=== PATIENT | female | born 1980 | race Caucasian/White ===

== ENCOUNTER 2021-04-03 16:07 | Inpatient (IN) ==
[2021-04-03] MEDS ORDERED: MAGNESIUM SULFATE 40GM / WTR 1,000 ML BAG IV ONE (16:47)
[2021-04-03] MEDS ORDERED: NIFEdipine 10 MG CAP PO STA ×2 (16:59→17:34)
[2021-04-03] MEDS ORDERED: NIFEdipine 10 MG CAP ONE (17:02)
[2021-04-03 17:09] LABS: Basophils # (auto) 0.01 K/uL (0-0.2); Basophils % (auto) 0.1 %; Eosinophils # (auto) 0.03 K/uL (0-0.5); Eosinophils % (auto) 0.3 %; Hemoglobin 12.6 g/dL (12.0-16.0); Immature Granulocytes # (auto) 0.02 K/uL (0.00-0.02); Immature Granulocytes % (auto) 0.2 %; Lymphocytes # (auto) 2.34 K/uL (1.2-3.4); Lymphocytes % (auto) 26.3 %; Mean Corpuscular Hemoglobin 32.6 pg (25-34); Mean Corpuscular Hgb Conc 34.1 g/dL (32-36); Mean Corpuscular Volume 95.6 fL (80-100); Mean Platelet Volume 10.7 fL (7.4-10.4); Monocytes # (auto) 0.91 K/uL (0.11-0.59); Monocytes % (auto) 10.2 %; Neutrophils % (auto) 62.9 %; Platelet Count 238 K/uL (130-400); RDW Coefficient of Variation 13.6 % (11.5-14.5); RDW Standard Deviation 47.2 fL (36.4-46.3); Red Blood Count 3.87 M/uL (4.2-5.4); White Blood Count 8.91 K/uL (4.8-10.8)
[2021-04-03 17:31] LABS: Alanine Aminotransferase 22 U/L (12-78); Albumin Level 2.1 gm/dl (3.4-5.0); Aspartate Aminotransferase 27 U/L (15-37); BUN Creatinine Ratio 12.2 (10-20); Blood Urea Nitrogen 9 mg/dl (7-18); Carbon Dioxide 22 mmol/L (21-32); Chloride 105 mmol/L (98-107); Est GFR (African American) 113.7 ml/min; Est GFR (Non-African American) 98.1 ml/min; Glucose 72 mg/dl (70-99); Sodium 137 mmol/L (136-145)
[2021-04-03 17:33] LABS: Albumin Globulin Ratio 0.5 (0.9-2); Alkaline Phosphatase 97 U/L (45-117); Bilirubin,Total 0.3 mg/dl (0.2-1); Globulin 4.2 gm/dl (2.5-4.0); Total Protein 6.3 gm/dl (6.4-8.2)
[2021-04-03] MEDS: LACTATED RINGER'S 1,000 ML IV PRN ×2 (17:55→21:57)
[2021-04-03] MEDS ORDERED: LACTATED RINGER'S 1,000 ML IV PRN (18:07)
[2021-04-03] MEDS ORDERED: PENICILLIN G POTASSIUM 6 MU in DEXTROSE 5% 250 ML IV STA (18:07)
[2021-04-03] MEDS ORDERED: OXYTOCIN 30 UNITS/500 ML BAG IV PRN ×2 (18:07→18:09)
[2021-04-03] MEDS ORDERED: BETAMETH SOD PHOS/ACETATE IA 6 MG/ML IM STA (18:09)
[2021-04-03 18:14] LABS: Protein Creatinine Ratio Urine 2.3 (0-0.2); Total Protein Urine Random 667.1 mg/dl (0-11.9)
[2021-04-03] MEDS ORDERED: MAG SULFATE BOLUS FROM BAG 4 GM IV ONE (18:14)
[2021-04-03] MEDS ORDERED: BETAMETH SOD PHOS/ACETATE IA 6 MG/ML ONE (18:19)
--- NOTE | 2021-04-03 19:27 | History & Physical Report ---
Date of Service April 03, 2021 Assessment & Plan (1) Preeclampsia, severe: Plan: Admit to L&D. On arrival to L&D, patient continued to have multiple BPs 180s/110s. She received 10mg immediate-release PO nifedipine, this was not helpful, and then after 2nd dose of 10mg BP improved to 150s/90s. Preeclampsia bloodwork labs wnl, however protein/creatinine ratio is 2.3. Proteinuria + elevated BPs is diagnostic of preeclampsia, need for BP-lowering drugs because of persistent BP >160s/110 results in diagnosis of severe preeclampsia. I discussed the above with patient, recommended delivery. She is agreeable. We discussed attempt at vaginal delivery vs section, and she would prefer to proceed with induction of labor - since she is , she hopes the baby will not be too large for delivery. I think this is reasonable, given last week's US showing estimated weight of 3352g. For preeclampsia, will give magnesium 4g bolus and 2g/hr, with magnesium levels Q6h. Clear liquid diet, goodman catheter, seizure precautions. Will treat BPs > 160/110. For labor, I collected GBS swab today, will treat for current GBS unknown status with Pen G. Betamethasone given. I discussed case with on-call special events director Dr Laguna so he is aware of patient. For GDMA2, initial blood glucose was 72. Will check BS Q2h overnight, then Qhour while in active labor. To induce labor, I recommended goodman bulb with pitocin. Patient counseled, and agreeable. Goodman balloon placed, 35cc sterile water. Tolerated well. Continuous monitoring, blood type & screen ordered. EPC cuffs. Full COVID precaution protocols, patient is in negative-pressure room. OK for epidural when she desires. (2) COVID-19 affecting , antepartum: Admission and Anticipated Discharge Date Admission Date: April 03, 2021 History of Present Illness Chief Complaint: elevated BPs Primary Care Provider: Ricardo Santillan, DO 40yo @ 36 09/10, sent to L&D after routine office visit showed elevated BPs - 180s/100s. She is feeling unwell, reports nasal stuffiness and runny nose. Has not been able to taste/smell over the past few days. 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 She previously had COVID in May 2020. Not vaccinated. She denies COOMBS, vision changes, RUQ pain, N/V, fever/chills. Eating/drinking well. LE swelling has been present for weeks. + movement, no vaginal bleeding, no leaking of fluid, no reg ctx. also complicated by: Advanced Maternal Age IVF - no ICSI * echo- Normal GDM on insulin - current regimen is 8u Humalog with meals, 25u Novolin at night, but hasn't taken recently because she has been eating only soup because she cannot taste anything. 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 MFM recommended Lovenox PP if is needed. Placenta low lying - resolved at 32 weeks U/S Sleep apnea--had study at 3 months, was recommended to repeat study, patient declined because she cannot lie on her back. Allergies Allergy/AdvReac Type Severity Reaction Status Date / Time Sulfa (Sulfonamide Allergy hives Verified 04/03/21 18:33 Antibiotics) Home Medications Medication Instructions Recorded Confirmed Type prenat.vits,endy,jvy-rowa-vzyqb 1 tab PO DAILY 09/11/20 04/03/21 History aspirin [Adult Low Dose Aspirin] 81 mg PO DAILY 02/16/21 04/03/21 History insulin NPH isoph U-100 human 100 10 unit SUBCUT QPM #15 ml 03/09/21 04/03/21 Rx unit/mL (3 mL) subcutaneous pen (Novolin N Flexpen) pen needle, diabetic 32 gauge x #50 ea 03/09/21 03/28/21 Rx 5/32" (BD Ultra-Fine Hedy Pen Needle) insulin aspart U-100 100 unit/mL 8 unit SUBCUT .COMPLEX #15 ml 03/19/21 04/03/21 Rx (3 mL) subcutaneous pen (Novolog Flexpen U-100 Insulin aspart) Patient History Surgical History Hx of bariatric surgery gastric sleeve 2016 Family History (Updated 09/18/20 @ 15:20 by Nettie Ashley MD) Grandfather (Maternal) Factor V Leiden homozygous Deep vein thrombosis Sister Factor V Leiden heterozygous Social History (Updated 09/11/20 @ 15:19 by Sylwia Crisostomo) Smoking Status: Never smoker Hx Alcohol Use: No Hx Substance Use: No Preferred Language: Swedish Communication Ability: Effective Beliefs That Will Affect Care: None marital status: marital status details: Aayush (34) [phone] Current Living Situation: Spouse Current Living Situation Comment: lives with spouse, 4 cats, spouse to change litter current occupational status: employed 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 No s/s chorio or abruption. Skin: no rashes, warm and dry Psychiatric: A+Ox3, euthymic affect Results & Data ([facility]) Vital Signs (Past 12 Hours) Vital Signs Temp Pulse Resp BP 04/03/21 19:18 103 H 159/93 H 04/03/21 19:03 101 H 175/88 H 04/03/21 18:48 100 H 172/87 H 04/03/21 18:19 98 H 151/86 H 04/03/21 18:03 98 H 148/89 H 04/03/21 17:53 107 H 150/95 H 04/03/21 17:32 93 H 174/86 H 04/03/21 17:24 90 177/93 H 04/03/21 17:17 37.1 C 20 04/03/21 17:01 100 H 195/113 H 04/03/21 16:58 91 H 194/111 H 04/03/21 16:46 93 H 189/98 H 04/03/21 16:32 99 H 184/100 H 04/03/21 16:30 88 185/95 H Monitoring External Monitor FHT Cat 1 Garnet Q irreg SVE closed/thick/high Coding Level of Care Code None Diagnoses Preeclampsia, severe O14.10 COVID-19 affecting , antepartum O98.519; U07.1
[2021-04-03] MEDS: MAGNESIUM SULFATE / WTR 40 GM/1,000 ML BAG IV SCH (20:00)
[2021-04-03] MEDS ORDERED: BUPIVACAINE 0.25% 30 ML VIAL ONE (21:24)
[2021-04-03] MEDS ORDERED: SODIUM CHLORIDE 0.9% INJ 10 ML VIAL ONE (21:24)
[2021-04-03] MEDS ORDERED: ePHEDrine sulfate 50 MG/ML AMP ONE (21:24)
[2021-04-03] MEDS ORDERED: fentaNYL citrate 100 MCG/2 ML VIAL ONE (21:25)
[2021-04-03] MEDS ORDERED: fentaNYL 2MCG/ML ROPIVACAINE 1.25MG/ML 100 ML BAG EPI ONE (21:25)
--- NOTE | 2021-04-03 21:53 | Anesthesiology Consultation ---
Date of Service April 03, 2021 Assessment & Plan (1) Encounter for pre-operative examination: Chart Review Chart Review: Patient NOT seen in Pre Admission Testing and Acceptable Risk for Labor Epidural Consults Requested none ASA [id number] Proposed Anesthesia Anesthesia Type: Labor Epidural Risk / Benefits Reviewed With: PT / POA / Parent / Guardian, Accepts Plan and Informed Consent Obtained History Height/Weight Height: 5 ft 10 in Weight: 166.468 kg Allergies Allergy/AdvReac Type Severity Reaction Status Date / Time Sulfa (Sulfonamide Allergy hives Verified 04/03/21 18:33 Antibiotics) Medications Home Medications Medication Instructions Recorded Confirmed Last Taken prenat.vits,endy,xeu-zbpe-yvxti 1 tab PO DAILY 09/11/20 04/03/21 Unknown aspirin [Adult Low Dose Aspirin] 81 mg PO DAILY 02/16/21 04/03/21 Unknown insulin NPH isoph U-100 human 100 10 unit SUBCUT QPM #15 ml 03/09/21 04/03/21 Unknown unit/mL (3 mL) subcutaneous pen (Novolin N Flexpen) pen needle, diabetic 32 gauge x #50 ea 03/09/21 03/28/21 Unknown 5/32" (BD Ultra-Fine Hedy Pen Needle) insulin aspart U-100 100 unit/mL 8 unit SUBCUT .COMPLEX #15 ml 03/19/21 04/03/21 Unknown (3 mL) subcutaneous pen (Novolog Flexpen U-100 Insulin aspart) Active Medications Generic Name Dose Route Start Last Admin Trade Name Freq PRN Reason Stop Dose Admin Lactated Ringer's 1,000 mls @ 125 mls/hr 04/03/21 17:47 04/03/21 21:57 Lr IV 04/05/21 17:46 75 mls/hr .Q8H PRN Administration L&D Protocol Protocol Oxytocin 30 units in 500 mls @ 3 mls/hr 04/03/21 18:09 04/03/21 19:56 Pitocin IV 04/05/21 18:08 0.18 units/hr .Q24H PRN 3 mls/hr Labor Induction/Augmentation Titration Protocol 0.18 UNITS/HR Magnesium Sulfate 40 gm in 1,000 mls @ 50 mls/hr 04/03/21 18:15 04/03/21 20:00 Magnesium Sulfate / Wtr IV 05/03/21 18:14 50 mls/hr .Q20H [place] Administration NPO Date Last Intake of Fluids: 04/03/21 Time Last Intake of Fluids: 21:50 Date Last Intake of Solids: 04/03/21 Time Last Intake of Solids: 16:00 Past Medical History obesity, GDM, AMA,, COVID positive with sx Exercise / Class Metabolic Activity III < 4 Walking/Shop/Light housework Past Family History Family History Grandfather (Maternal) Factor V Leiden homozygous Deep vein thrombosis Sister Factor V Leiden heterozygous Past Surgical History Surgical History Hx of bariatric surgery gastric sleeve 2015 Past Anesthesia History No Hx of Anesthesia Complications History of PONV No Hx of PONV Social History Smoking Status: Never smoker Hx Alcohol Use: No Hx Substance Use: No substance use type: does not use Review of Systems Negative for chest pain or shortness of breath. Patient denies active symptoms of GERD. Patient denies history of abnormal bleeding or bleeding disorder. Patient denies active use of anticoagulants other than low dose aspirin. Patient denies numbness, tingling or weakness in lower extremities. Physical Exam Vital Signs Last Vital Signs Temp 36.6 C 04/03/21 19:34 Pulse 98 H 04/03/21 21:44 Resp 20 04/03/21 21:25 BP 139/92 04/03/21 21:02 Pulse Ox 99 04/03/21 21:44 Constitutional + obese ENMT Mouth: no TMJ abnormality and oral opening not small Thyromental Distance: > or= 3.5 Finger Breadths Mallampati Class: II Neck normal visual inspection; neck extension not limited Respiratory normal respiratory effort Auscultation: lungs clear to auscultation bilaterally Cardiovascular Rate/Rhythm: regular rate and regular rhythm Heart Sounds: no murmur Neurologic moves all extremities Psychiatric Orientation: alert and oriented x 3 Testing Laboratory Results 04/03/21 16:53 04/03/21 16:53 Blood Type A Positive 04/03/21 16:53 Antibody Screen NEGATIVE 04/03/21 16:53 04/03/21 21:19 POC Glucose 94
[2021-04-03] MEDS ORDERED: ePHEDrine sulfate 50 MG/ML AMP IV PRN (22:33)
[2021-04-03] MEDS ORDERED: NALBUPHINE HCL INJ 10 MG/ML AMP IV PRN (22:33)
[2021-04-03] MEDS ORDERED: ONDANSETRON INJ 2 MG/ML 2 ML VIAL IV PRN (22:33)
[2021-04-03] MEDS ORDERED: diphenhydrAMINE 50 MG/ML VIAL IV PRN (22:33)
[2021-04-03] MEDS ORDERED: NALOXONE HCL 0.4 MG/1 ML VIAL/CARP IV PRN (22:33)
[2021-04-03] MEDS ORDERED: NALOXONE HCL 1 MG in SODIUM CHLORIDE 0.9% 1000ML 1,000 ML IV PRN (22:33)
[2021-04-03] MEDS: PENICILLIN G POTASSIUM 3 MU in DEXTROSE 5% 100 ML IV PRN (23:55)
[2021-04-04] MEDS ORDERED: NIFEdipine 10 MG CAP PO STA (02:33)
[2021-04-04] MEDS ORDERED: NIFEdipine 10 MG CAP PO PRN (02:34)
[2021-04-04] MEDS: PENICILLIN G POTASSIUM 3 MU in DEXTROSE 5% 100 ML IV PRN ×4 (03:48→16:27)
[2021-04-04] MEDS: LACTATED RINGER'S 1,000 ML IV PRN (05:24)
[2021-04-04] MEDS: fentaNYL 2MCG/ML ROPIVACAINE 1.25MG/ML 100 ML BAG EPI PRN ×2 (06:19→14:03)
[2021-04-04] MEDS ORDERED: DEXTROSE 5% 1,000 ML IV PRN (07:08)
[2021-04-04] MEDS ORDERED: INSULIN REGULAR 250 UNITS in SODIUM CHLORIDE 0.9% 247.5 ML IV PRN (07:08)
[2021-04-04] MEDS ORDERED: SODIUM CHLORIDE 0.9% 1000ML 1,000 ML IV PRN (07:08)
[2021-04-04] MEDS ORDERED: DEXTROSE 50% 50 ML SYRINGE IV PRN (07:08)
[2021-04-04 07:24] LABS: Hematocrit (blood only) 37.9 % (37-47); Hemoglobin 12.7 g/dL (12.0-16.0); Mean Corpuscular Hemoglobin 32.2 pg (25-34); Mean Corpuscular Hgb Conc 33.5 g/dL (32-36); Mean Corpuscular Volume 95.9 fL (80-100); Mean Platelet Volume 10.9 fL (7.4-10.4); Platelet Count 256 K/uL (130-400); RDW Coefficient of Variation 13.7 % (11.5-14.5); RDW Standard Deviation 47.8 fL (36.4-46.3); Red Blood Count 3.95 M/uL (4.2-5.4); White Blood Count 11.42 K/uL (4.8-10.8)
--- NOTE | 2021-04-04 08:09 | Labor Progress Brief Note ---
Date of Service April 04, 2021 Subjective Received epidural overnight, now comfortable. FHT Cat 1 [place] Q 2 SVE: goodman bulb in the vagina, cervix 3/50/-3, anterior. Small amount of bloody show. BPs - required one dose of procardia 10mg overnight. Labs - CBC wnl, remainder of preeclampsia labs still pending. Glucose - elevated glucose, will initiate labor glucose management protocol. Continue labor. Assessment & Plan Admission and Anticipated Discharge Date Admission Date: April 03, 2021 Results & Data ([facility]) Vital Signs (Past 12 Hours) Vital Signs Pulse Resp BP Pulse Ox 04/04/21 08:04 109 H 98 04/04/21 07:59 108 H 98 04/04/21 07:54 108 H 98 04/04/21 07:49 114 H 98 04/04/21 07:44 110 H 99 04/04/21 07:39 110 H 98 04/04/21 07:38 106 H 137/76 04/04/21 07:36 112 H 211/89 H 04/04/21 07:34 117 H 99 04/04/21 07:29 112 H 98 04/04/21 07:24 110 H 99 04/04/21 07:20 112 H 159/96 H 04/04/21 07:19 113 H 98 04/04/21 07:14 123 H 98 04/04/21 07:09 117 H 98 04/04/21 07:05 111 H 149/93 H 04/04/21 07:04 117 H 98 04/04/21 06:59 115 H 98 04/04/21 06:54 112 H 97 04/04/21 06:50 113 H 160/98 H 04/04/21 06:49 117 H 97 04/04/21 06:44 107 H 99 04/04/21 06:39 115 H 98 04/04/21 06:35 107 H 151/93 H 04/04/21 06:34 110 H 98 04/04/21 06:30 20 04/04/21 06:29 113 H 98 04/04/21 06:24 113 H 99 04/04/21 06:20 104 H 141/83 H 04/04/21 06:19 104 H 99 04/04/21 06:14 104 H 99 04/04/21 06:09 110 H 160/71 H 100 04/04/21 06:06 120 H 171/100 H 04/04/21 06:04 110 H 98 04/04/21 06:00 20 04/04/21 05:59 104 H 98 04/04/21 05:54 109 H 97 04/04/21 05:50 104 H 134/81 04/04/21 05:49 108 H 98 04/04/21 05:44 112 H 97 04/04/21 05:39 115 H 98 04/04/21 05:35 112 H 129/82 04/04/21 05:34 115 H 97 04/04/21 05:30 16 04/04/21 05:29 114 H 99 04/04/21 05:24 120 H 99 04/04/21 05:20 120 H 134/83 04/04/21 05:19 120 H 99 04/04/21 05:14 120 H 99 04/04/21 05:09 112 H 98 04/04/21 05:04 104 H 98 04/04/21 05:00 20 04/04/21 04:59 106 H 96 04/04/21 04:54 105 H 97 04/04/21 04:49 105 H 98 04/04/21 04:46 105 H 154/82 H 04/04/21 04:44 107 H 99 04/04/21 04:39 107 H 97 04/04/21 04:34 111 H 16 97 04/04/21 04:30 16 04/04/21 04:29 106 H 97 04/04/21 04:26 112 H 150/103 H 04/04/21 04:24 111 H 97 04/04/21 04:19 108 H 98 04/04/21 04:14 107 H 98 04/04/21 04:09 109 H 98 04/04/21 04:06 106 H 145/85 H 04/04/21 04:04 112 H 98 04/04/21 04:00 18 04/04/21 03:59 108 H 98 04/04/21 03:54 107 H 98 04/04/21 03:49 108 H 98 04/04/21 03:47 114 H 147/82 H 04/04/21 03:44 109 H 98 04/04/21 03:39 110 H 97 04/04/21 03:34 112 H 98 04/04/21 03:30 16 04/04/21 03:29 114 H 97 04/04/21 03:26 115 H 139/78 04/04/21 03:24 115 H 95 04/04/21 03:21 119 H 94 04/04/21 03:19 116 H 96 04/04/21 03:14 120 H 96 04/04/21 03:09 115 H 97 04/04/21 03:06 111 H 148/80 H 04/04/21 03:04 110 H 96 04/04/21 03:00 20 04/04/21 02:59 104 H 97 04/04/21 02:54 103 H 97 04/04/21 02:49 98 H 16 97 04/04/21 02:44 106 H 98 04/04/21 02:39 104 H 173/91 H 98 04/04/21 02:34 102 H 98 04/04/21 02:29 102 H 97 04/04/21 02:28 102 H 169/97 H 04/04/21 02:25 101 H 173/106 H 04/04/21 02:24 102 H 97 04/04/21 02:19 102 H 98 04/04/21 02:17 97 H 152/84 H 04/04/21 02:14 97 H 150/70 H 98 04/04/21 02:09 100 H 183/79 H 97 04/04/21 02:05 16 04/04/21 02:04 103 H 98 04/04/21 02:00 20 04/04/21 01:59 100 H 98 04/04/21 01:54 103 H 98 04/04/21 01:53 101 H 137/65 04/04/21 01:49 103 H 98 04/04/21 01:44 102 H 97 04/04/21 01:39 104 H 98 04/04/21 01:38 102 H 134/63 04/04/21 01:34 103 H 97 04/04/21 01:30 18 04/04/21 01:29 100 H 98 04/04/21 01:24 104 H 98 04/04/21 01:23 99 H 137/81 04/04/21 01:19 106 H 99 04/04/21 01:16 96 H 135/73 04/04/21 01:14 108 H 99 04/04/21 01:12 104 H 138/74 04/04/21 01:09 104 H 184/107 H 98 04/04/21 01:05 109 H 167/110 H 90 04/04/21 01:04 103 H 97 04/04/21 01:00 20 04/04/21 00:59 102 H 96 04/04/21 00:54 98 H 175/95 H 97 04/04/21 00:49 101 H 96 04/04/21 00:44 99 H 97 04/04/21 00:40 100 H 164/85 H 04/04/21 00:39 111 H 98 04/04/21 00:34 98 H 97 04/04/21 00:30 16 04/04/21 00:29 101 H 97 04/04/21 00:24 98 H 97 04/04/21 00:23 100 H 148/88 H 04/04/21 00:19 98 H 96 04/04/21 00:14 98 H 97 04/04/21 00:09 96 H 96 04/04/21 00:08 98 H 149/86 H 04/04/21 00:04 97 H 98 04/04/21 00:00 04/03/21 23:59 97 H 99 04/03/21 23:54 102 H 99 04/03/21 23:53 96 H 146/83 H 04/03/21 23:49 102 H 98 04/03/21 23:46 102 H 88 L 04/03/21 23:44 95 H 96 04/03/21 23:39 101 H 138/86 97 04/03/21 23:34 102 H 98 04/03/21 23:30 16 04/03/21 23:29 103 H 98 04/03/21 23:24 102 H 97 04/03/21 23:23 100 H 148/79 H 04/03/21 23:19 102 H 97 04/03/21 23:14 105 H 98 04/03/21 23:09 118 H 107/52 L 98 04/03/21 23:05 102 H 104/51 L 04/03/21 23:04 102 H 98 04/03/21 23:02 105 H 101/51 L 04/03/21 23:00 109 H 20 107/55 L 04/03/21 22:59 106 H 99 04/03/21 22:58 101 H 107/52 L 04/03/21 22:56 100 H 101/52 L 04/03/21 22:54 98 H 99/58 L 98 04/03/21 22:52 105 H 97/55 L 04/03/21 22:50 103 H 89/50 L 04/03/21 22:49 106 H 99 04/03/21 22:48 96 H 96/50 L 04/03/21 22:46 99 H 91/52 L 04/03/21 22:44 91 H 82/44 L 98 04/03/21 22:42 94 H 77/40 L 04/03/21 22:40 85 76/40 L 04/03/21 22:39 90 82/46 L 99 04/03/21 22:37 94 H 81/41 L 04/03/21 22:34 110 H 95 04/03/21 22:33 100 H 170/102 H 04/03/21 22:29 109 H 105/62 98 04/03/21 22:26 108 H 115/53 L 04/03/21 22:24 119 H 98 04/03/21 22:23 126 H 134/90 04/03/21 22:21 110 H 136/90 04/03/21 22:19 106 H 100 04/03/21 22:14 103 H 98 04/03/21 22:09 107 H 99 04/03/21 22:04 116 H 174/108 H 99 04/03/21 22:00 16 04/03/21 21:59 103 H 99 04/03/21 21:54 101 H 98 04/03/21 21:49 105 H 98 04/03/21 21:44 98 H 99 04/03/21 21:39 108 H 97 04/03/21 21:34 104 H 98 04/03/21 21:29 103 H 98 04/03/21 21:25 20 04/03/21 21:24 103 H 99 04/03/21 21:19 98 H 98 04/03/21 21:14 104 H 98 04/03/21 21:09 100 H 98 04/03/21 21:02 100 H 139/92 04/03/21 20:48 102 H 147/87 H 04/03/21 20:32 95 H 145/79 H 09/28/21 20:25 16 04/03/21 20:17 92 H 143/83 H 04/03/21 20:10 18 Coding Level of Care Code None
[2021-04-04 08:20] LABS: Albumin Globulin Ratio 0.5 (0.9-2); Albumin Level 2.1 gm/dl (3.4-5.0); BUN Creatinine Ratio 13.3 (10-20); Bilirubin,Total 0.4 mg/dl (0.2-1); Calcium 8.6 mg/dl (8.5-10.1); Est GFR (African American) 110.2 ml/min; Est GFR (Non-African American) 95.1 ml/min; Globulin 4.4 gm/dl (2.5-4.0); Potassium 4.5 mmol/L (3.5-5.1); Total Protein 6.5 gm/dl (6.4-8.2)
--- NOTE | 2021-04-04 11:35 | Labor Progress Brief Note ---
Date of Service April 04, 2021 Subjective Reason For Note: Routine Evaluation Assessment & Plan (1) Insulin controlled gestational diabetes mellitus (GDM) during : Plan: 1. Fetus: Cat 1 2. Labor: Unchanged. Pitocin at 9. station to high for safe rupture. 3. PIH: Labs normal. BPs are mild range. Denies PIH symptoms. 4. gDM - Normal range. (2) Preeclampsia, severe: (3) Elderly primigravida, antepartum: (4) resulting from in vitro fertilization, antepartum: Admission and Anticipated Discharge Date Admission Date: April 03, 2021 Physical Exam Genitourinary: Manual OB Exam: + cervical dilation 3 cm, + cervical effacement 50% and + station high OB Exam Monitor Tracing: + external FHT monitor used, + external uterine monitor used, + category I and + normal FHT variability Results & Data ([facility]) Vital Signs (Past 12 Hours) Vital Signs Pulse Resp BP Pulse Ox 04/04/21 11:29 114 H 99 04/04/21 11:24 115 H 98 04/04/21 11:19 111 H 98 04/04/21 11:14 110 H 98 04/04/21 11:09 109 H 149/83 H 98 04/04/21 11:04 109 H 97 04/04/21 10:59 110 H 99 04/04/21 10:54 109 H 99 04/04/21 10:49 112 H 96 04/04/21 10:44 108 H 97 04/04/21 10:40 110 H 134/67 04/04/21 10:39 107 H 98 04/04/21 10:34 108 H 99 04/04/21 10:29 110 H 99 04/04/21 10:24 110 H 99 04/04/21 10:19 106 H 98 04/04/21 10:14 110 H 99 04/04/21 10:10 108 H 142/84 H 04/04/21 10:09 106 H 98 04/04/21 10:04 107 H 98 04/04/21 10:00 20 04/04/21 09:59 111 H 98 04/04/21 09:54 109 H 98 04/04/21 09:49 105 H 97 04/04/21 09:44 106 H 99 04/04/21 09:39 106 H 140/85 97 04/04/21 09:34 104 H 97 04/04/21 09:29 111 H 98 04/04/21 09:24 103 H 98 04/04/21 09:19 104 H 98 04/04/21 09:14 106 H 98 04/04/21 09:09 107 H 131/77 98 04/04/21 09:04 108 H 99 04/04/21 09:00 20 04/04/21 08:59 107 H 99 04/04/21 08:54 108 H 99 04/04/21 08:49 108 H 98 04/04/21 08:44 120 H 98 04/04/21 08:39 104 H 135/82 98 04/04/21 08:36 105 H 140/81 04/04/21 08:34 109 H 99 04/04/21 08:29 107 H 98 04/04/21 08:24 110 H 99 04/04/21 08:19 108 H 99 04/04/21 08:14 110 H 99 04/04/21 08:09 109 H 98 04/04/21 08:04 109 H 98 04/04/21 08:00 20 04/04/21 07:59 108 H 98 04/04/21 07:54 108 H 98 04/04/21 07:49 114 H 98 04/04/21 07:44 110 H 99 04/04/21 07:39 110 H 98 04/04/21 07:38 106 H 137/76 04/04/21 07:36 112 H 211/89 H 04/04/21 07:34 117 H 99 04/04/21 07:29 112 H 98 04/04/21 07:24 110 H 99 04/04/21 07:20 112 H 159/96 H 04/04/21 07:19 113 H 98 04/04/21 07:14 123 H 98 04/04/21 07:09 117 H 98 04/04/21 07:05 111 H 149/93 H 04/04/21 07:04 117 H 98 04/04/21 06:59 115 H 98 04/04/21 06:54 112 H 97 04/04/21 06:50 113 H 160/98 H 04/04/21 06:49 117 H 97 04/04/21 06:44 107 H 99 04/04/21 06:39 115 H 98 04/04/21 06:35 107 H 151/93 H 04/04/21 06:34 110 H 98 04/04/21 06:30 20 04/04/21 06:29 113 H 98 04/04/21 06:24 113 H 99 04/04/21 06:20 104 H 141/83 H 04/04/21 06:19 104 H 99 04/04/21 06:14 104 H 99 04/04/21 06:09 110 H 160/71 H 100 04/04/21 06:06 120 H 171/100 H 04/04/21 06:04 110 H 98 04/04/21 06:00 20 04/04/21 05:59 104 H 98 04/04/21 05:54 109 H 97 04/04/21 05:50 104 H 134/81 04/04/21 05:49 108 H 98 04/04/21 05:44 112 H 97 04/04/21 05:39 115 H 98 04/04/21 05:35 112 H 129/82 04/04/21 05:34 115 H 97 04/04/21 05:30 16 04/04/21 05:29 114 H 99 04/04/21 05:24 120 H 99 04/04/21 05:20 120 H 134/83 04/04/21 05:19 120 H 99 04/04/21 05:14 120 H 99 04/04/21 05:09 112 H 98 04/04/21 05:04 104 H 98 04/04/21 05:00 20 04/04/21 04:59 106 H 96 04/04/21 04:54 105 H 97 04/04/21 04:49 105 H 98 04/04/21 04:46 105 H 154/82 H 04/04/21 04:44 107 H 99 04/04/21 04:39 107 H 97 04/04/21 04:34 111 H 16 97 04/04/21 04:30 16 04/04/21 04:29 106 H 97 04/04/21 04:26 112 H 150/103 H 04/04/21 04:24 111 H 97 04/04/21 04:19 108 H 98 04/04/21 04:14 107 H 98 04/04/21 04:09 109 H 98 04/04/21 04:06 106 H 145/85 H 04/04/21 04:04 112 H 98 04/04/21 04:00 18 04/04/21 03:59 108 H 98 04/04/21 03:54 107 H 98 04/04/21 03:49 108 H 98 04/04/21 03:47 114 H 147/82 H 04/04/21 03:44 109 H 98 04/04/21 03:39 110 H 97 04/04/21 03:34 112 H 98 04/04/21 03:30 16 04/04/21 03:29 114 H 97 04/04/21 03:26 115 H 139/78 04/04/21 03:24 115 H 95 04/04/21 03:21 119 H 94 04/04/21 03:19 116 H 96 04/04/21 03:14 120 H 96 04/04/21 03:09 115 H 97 04/04/21 03:06 111 H 148/80 H 04/04/21 03:04 110 H 96 04/04/21 03:00 20 04/04/21 02:59 104 H 97 04/04/21 02:54 103 H 97 04/04/21 02:49 98 H 16 97 04/04/21 02:44 106 H 98 04/04/21 02:39 104 H 173/91 H 98 04/04/21 02:34 102 H 98 04/04/21 02:29 102 H 97 04/04/21 02:28 102 H 169/97 H 04/04/21 02:25 101 H 173/106 H 04/04/21 02:24 102 H 97 04/04/21 02:19 102 H 98 04/04/21 02:17 97 H 152/84 H 04/04/21 02:14 97 H 150/70 H 98 04/04/21 02:09 100 H 183/79 H 97 04/04/21 02:05 16 04/04/21 02:04 103 H 98 04/04/21 02:00 20 04/04/21 01:59 100 H 98 04/04/21 01:54 103 H 98 04/04/21 01:53 101 H 137/65 04/04/21 01:49 103 H 98 04/04/21 01:44 102 H 97 04/04/21 01:39 104 H 98 04/04/21 01:38 102 H 134/63 04/04/21 01:34 103 H 97 04/04/21 01:30 18 04/04/21 01:29 100 H 98 04/04/21 01:24 104 H 98 04/04/21 01:23 99 H 137/81 04/04/21 01:19 106 H 99 04/04/21 01:16 96 H 135/73 04/04/21 01:14 108 H 99 04/04/21 01:12 104 H 138/74 04/04/21 01:09 104 H 184/107 H 98 04/04/21 01:05 109 H 167/110 H 90 04/04/21 01:04 103 H 97 04/04/21 01:00 20 04/04/21 00:59 102 H 96 04/04/21 00:54 98 H 175/95 H 97 04/04/21 00:49 101 H 96 04/04/21 00:44 99 H 97 04/04/21 00:40 100 H 164/85 H 04/04/21 00:39 111 H 98 04/04/21 00:34 98 H 97 04/04/21 00:30 16 04/04/21 00:29 101 H 97 04/04/21 00:24 98 H 97 04/04/21 00:23 100 H 148/88 H 04/04/21 00:19 98 H 96 04/04/21 00:14 98 H 97 04/04/21 00:09 96 H 96 04/04/21 00:08 98 H 149/86 H 04/04/21 00:04 97 H 98 04/04/21 00:00 20 04/03/21 23:59 97 H 99 04/03/21 23:54 102 H 99 04/03/21 23:53 96 H 146/83 H 04/03/21 23:49 102 H 98 04/03/21 23:46 102 H 88 L 04/03/21 23:44 95 H 96 04/03/21 23:39 101 H 138/86 97 04/03/21 23:34 102 H 98 Coding Level of Care Code None Diagnoses Insulin controlled gestational diabetes mellitus (GDM) during O24.414 Preeclampsia, severe O14.10 Elderly primigravida, antepartum O09.519 resulting from in vitro fertilization, antepartum O09.819
[2021-04-04] MEDS: MAGNESIUM SULFATE / WTR 40 GM/1,000 ML BAG IV SCH (13:59)
[2021-04-04] MEDS ORDERED: AZITHROMYCIN 500 MG in DEXTROSE 5% 250 ML IV STA (16:48)
[2021-04-04] MEDS ORDERED: CITRIC ACID/SODIUM CITRATE 15 ML UDC ONE ×2 (17:00→17:08)
[2021-04-04] MEDS ORDERED: MoRPHine SULFATE PF 1 MG/ML 10 ML AMP/VIAL ONE (17:10)
[2021-04-04] MEDS ORDERED: CALCIUM GLUCONATE 10% 3,000 MG in 0.9 % SODIUM CHLORIDE 100 ML IV PRN (17:15)
[2021-04-04] MEDS ORDERED: CALCIUM GLUCONATE 10% 1,000 MG in SODIUM CHLORIDE 0.9% 50 ML IV PRN (17:30)
[2021-04-04 17:45] LABS: Fibrinogen 485 mg/dl (184-400); INR < 0.8 (0.9-1.1); Partial Thromboplastin Ratio 0.9; Partial Thromboplastin Time 22.7 Seconds (21.0-31.0); Prothrombin Time < 8.7 Seconds (9.0-12.0)
[2021-04-04] MEDS ORDERED: BETAMETH SOD PHOS/ACETATE IA 6 MG/ML IM ONE (18:00)
[2021-04-04] MEDS ORDERED: LACTATED RINGER'S 500 ML IV PRN (18:25)
[2021-04-04] MEDS ORDERED: PROMETHAZINE HCL 12.5 MG in SODIUM CHLORIDE 0.9% 50 ML IV PRN (18:25)
[2021-04-04] MEDS ORDERED: NALBUPHINE HCL INJ 10 MG/ML AMP IV PRN (18:25)
[2021-04-04] MEDS ORDERED: MoRPHine SULFATE PF 1 MG/ML 10 ML AMP/VIAL EPI ONE (18:25)
[2021-04-04] MEDS ORDERED: diphenhydrAMINE 50 MG/ML VIAL IV PRN (18:25)
[2021-04-04] MEDS ORDERED: ONDANSETRON INJ 2 MG/ML 2 ML VIAL IV PRN (18:25)
[2021-04-04] MEDS ORDERED: ePHEDrine sulfate 50 MG/ML AMP IV PRN (18:25)
[2021-04-04] MEDS ORDERED: NALOXONE HCL 1 MG in SODIUM CHLORIDE 0.9% 1000ML 1,000 ML IV PRN (18:25)
[2021-04-04] MEDS ORDERED: NALOXONE HCL 0.4 MG/1 ML VIAL/CARP IV PRN (18:25)
[2021-04-04] MEDS ORDERED: NALOXONE HCL 0.08 MG in SYRINGE 1.8 ML IV PRN (18:25)
[2021-04-04] MEDS ORDERED: MoRPHine SULFATE 2 MG/ML CARP IV PRN (18:25)
[2021-04-04] MEDS ORDERED: NO NARCOTICS OR SEDATIVES SCH (18:30)
[2021-04-04] MEDS ORDERED: SODIUM CHLORIDE 0.9% 1000ML 1,000 ML IV SCH (18:30)
[2021-04-04] MEDS ORDERED: DC INTRASPINAL MORPHINE SCH (18:30)
[2021-04-04 18:39] LABS: Base Excess Cord Venous Blood -8.3 mEq/L (-7.7-1.9); Cord Venous Blood HCO3 21 mmol/L (18.4-26.8); Cord Venous Blood PCO2 58 mmHg (30.4-57.2); Cord Venous Blood PO2 13 mmHg (14.1-43.3); Cord Venous Blood pH 7.17 (7.20-7.44)
[2021-04-04 18:40] LABS: O2 Saturation Cord Venous Bld < 60.0 % (<68)
[2021-04-04] MEDS ORDERED: miSOPROStoL 200 MCG TAB ONE (18:46)
[2021-04-04] MEDS ORDERED: HYDROCORTISONE ACETATE 25 MG SUPP PR PRN (19:01)
[2021-04-04] MEDS ORDERED: SENNA 8.6 MG TAB PO PRN (19:01)
[2021-04-04] MEDS ORDERED: SUPERCREAM 0.870% 15 GM JAR EXT PRN (19:01)
[2021-04-04] MEDS ORDERED: DIPHTHERIA/TETANUS/PERTUSSIS 0.5 ML SYR/VIAL IM ONE (19:01)
[2021-04-04] MEDS ORDERED: MAGNESIUM HYDROXIDE SUSP 30 ML UDC PO PRN (19:01)
[2021-04-04] MEDS ORDERED: BENZOCAINE 20% AER SPR 82.5 GM CAN EXT PRN (19:01)
--- NOTE | 2021-04-04 19:01 | Post Operative Brief Note ---
PG Immediate Post Op with CF Date of Surgery April 04, 2021 Pre & Post Diagnosis Operation Date: 04/04/21 16:40 Elective . Severe pre-Eclampsia A2gDM I identified the patient and participated in the time-out.: Yes Procedure Operation Date: 04/04/21 16:40 Actual Procedures p Section in OR #1 for live female delivered at 1807(Left) - Ayo Morrell MD Surgeon Ayo Morrell MD Sugar Coating Hand Dr. Garrison Estimated Blood Loss 800 Findings Consistent with Post-Op Diagnosis Specimens Specimen Description: cord blood arterial and venous cord blood gases placenta-hold Drains Rubi Catheter (indwelling upon admission to OR)
[2021-04-04] MEDS ORDERED: ONDANSETRON INJ 2 MG/ML 2 ML VIAL ONE (19:14)
[2021-04-04] MEDS ORDERED: OXYTOCIN 10 UNITS/ML VIAL ONE (19:14)
[2021-04-04] MEDS ORDERED: PHENYLEPHRINE 100MCG/ML 5ML SYR ONE (19:14)
[2021-04-04] MEDS ORDERED: METOCLOPRAMIDE HCL INJ 5 MG/ML 2 ML VIAL ONE (19:14)
[2021-04-04] MEDS ORDERED: PROPOFOL IV EMULSION 10 MG/ML 20 ML VIAL IV ONE (19:14)
[2021-04-04] MEDS ORDERED: ePHEDrine sulfate 50 MG/ML SYR ONE (19:14)
[2021-04-04] MEDS ORDERED: SUCCINYLCHOLINE CHLORIDE 20 MG/ML 10 ML VIAL IV ONE (19:14)
[2021-04-04] MEDS ORDERED: LACTATED RINGER'S 1,000 ML IV SCH (19:15)
[2021-04-04] MEDS: OXYTOCIN 20 UNITS in LACTATED RINGER'S 1,000 ML IV SCH (20:00)
[2021-04-04] MEDS: KETOROLAC 30 MG/ML VIAL IV PRN (20:49)
[2021-04-04] MEDS: SIMETHICONE 80 MG CHEW PO SCH (20:57)
[2021-04-04] MEDS: DOCUSATE SODIUM 100 MG CAP PO SCH (20:57)
[2021-04-04] MEDS ORDERED: LABETALOL HCL IV 5 MG/ML 20ML IV STA (22:22)
[2021-04-04] MEDS: LABETALOL HCL 200 MG TAB PO SCH (23:16)
--- NOTE | 2021-04-04 23:49 | Operative Report (OR) ---
DATE OF PROCEDURE: 04/04/2021 PROCEDURE: Elective primary low transverse section. PREOPERATIVE DIAGNOSES: 1. Single intrauterine at 36 weeks 4 days gestational age. 2. Preeclampsia with severe features. 3. Insulin-dependent gestational diabetes. 4. Advanced maternal age. 5. IVF . 6. Suspected large for gestational age . 7. Elective section. POSTOPERATIVE DIAGNOSES: 1. Single intrauterine at 36 weeks 4 days gestational age. 2. Preeclampsia with severe features. 3. Insulin-dependent gestational diabetes. 4. Advanced maternal age. 5. IVF . 6. Suspected large for gestational age . 7. Elective section. 8. Status post procedure. SURGEON: Ayo Morrell MD ENGINEER AUTOMATED EQUIPMENT: Denia Garrison MD ESTIMATED BLOOD LOSS: 800 mL. DRAINS: Rubi catheter. FLUIDS: Continuous lactated Ringer. URINE OUTPUT: Per Rubi catheter. COMPLICATIONS: None. FINDINGS: Viable female infant with weight of 7 pounds 5 ounces and Apgars of 6 and 8 in one and five minutes respectively. INDICATIONS: Valentina is a 40-year-old G1, P0, admitted at 36 weeks 3 days gestational age for preeclampsia with severe features. The patient was started on magnesium per regular protocol. She was treated on several occasions for acute severe range blood pressures and was given betamethasone for lung maturity. The patient was started on induction of labor. A Rubi bulb was placed and was started on oxytocin. After Rubi bulb came out, the patient was noted to be 3.5 cm dilated, 50% effaced, and high station. The patient's Pitocin was increased throughout the day and on multiple checks was noted to have no progression with fetus presenting part too high for rupture. After a check around 4:00 p.m., the patient voiced concern about the length of the induction of labor without progress and a lengthy discussion of options was had with the patient and her partner. After a lengthy discussion, the patient opted for an elective section. We discussed the risks of the procedure in detail and answered questions to the patient's satisfaction. We discussed due to her labor as well as elevated BMI, she is at increased risk for infections and complications as well as surgical complications in general. DESCRIPTION OF PROCEDURE: The patient was taken to the operating room after consents were ensured. Upon presentation, she was properly identified. The patient's epidural was then bolused to achieve adequate surgical levels. The patient was prepped and draped in a normal sterile fashion. Preprocedural timeout was performed. A Pfannenstiel incision was then made with a knife. It was carried down to underlying fascia with the Bovie. Fascia was then nicked at the midline with a knife and extended laterally in each direction with pickups and Miguel scissors. The superior aspect of the fascia was grasped with Kochers x2 and elevated off the underlying rectus muscles using blunt dissection. The inferior aspect of the fascia was grasped with Kochers x2, elevated off the underlying rectus muscles using blunt dissection. Midline was then entered bluntly and placed on stretch to provide adequate room for delivery. A bladder flap was then created and a bladder blade was inserted. A low transverse uterine incision was then made with a knife. The head of the was noted to be ballottable floating above the lower uterine segment with no engagement with the pelvis. The head of the was delivered through the hysterotomy and body and shoulders quickly followed. The cord was then double clamped and cut. was taken over to the waiting nursery staff for full care. Cord segment and cord blood was obtained. Attention was then turned to delivery of the placenta, which was delivered intact, 3-vessel cord, gentle cord traction. The uterus was then wrapped in a wet lap and a dry lap was used to remove any remaining membranes. The hysterotomy was then reapproximated with 0 Vicryl continuous running locked stitch. A second imbricating layer was performed. The posterior cul-de-sac was then cleaned with clots and debris and the uterus was returned to the maternal abdomen. Right and left pericolic gutters were cleaned of clots and debris. The hysterotomy was then reinspected and noted to have continued hemostasis. The muscle, fascia, and subcutaneous layers were inspected and noted to be hemostatic. The fascia was then reapproximated with 0 Vicryl continuous running stitch, started on each lateral apices and continued to the midline. The subcutaneous layers were reapproximated in 3 layers using 2-0 plain. The skin was reapproximated with 3-0 Vicryl on a Oc needle. Needle, sponge, and instrument counts were correct at the completion of the case. A compression dressing was applied to this incision after the completion of the surgery. Both mother and were stable in condition and taken to the recovery room for continued care. Job ID: [id number] MTDD
[2021-04-05] MEDS: KETOROLAC 30 MG/ML VIAL IV PRN ×2 (03:33→09:47)
[2021-04-05] MEDS: OXYTOCIN 20 UNITS in LACTATED RINGER'S 1,000 ML IV SCH (06:25)
[2021-04-05 06:28] LABS: Basophils # (auto) 0.01 K/uL (0-0.2); Basophils % (auto) 0.1 %; Hematocrit (blood only) 31.3 % (37-47); Hemoglobin 10.4 g/dL (12.0-16.0); Immature Granulocytes # (auto) 0.04 K/uL (0.00-0.02); Immature Granulocytes % (auto) 0.3 %; Lymphocytes # (auto) 1.77 K/uL (1.2-3.4); Lymphocytes % (auto) 11.3 %; Mean Corpuscular Hemoglobin 31.6 pg (25-34); Mean Corpuscular Hgb Conc 33.2 g/dL (32-36); Mean Corpuscular Volume 95.1 fL (80-100); Mean Platelet Volume 10.4 fL (7.4-10.4); Monocytes # (auto) 1.27 K/uL (0.11-0.59); Monocytes % (auto) 8.1 %; Neutrophils # (auto) 12.55 K/uL (1.4-6.5); Neutrophils % (auto) 80.2 %; Platelet Count 229 K/uL (130-400); RDW Coefficient of Variation 13.9 % (11.5-14.5); RDW Standard Deviation 48.1 fL (36.4-46.3); Red Blood Count 3.29 M/uL (4.2-5.4); White Blood Count 15.64 K/uL (4.8-10.8)
[2021-04-05 07:00] LABS: Creatinine Clr Calc Pharmacy 136.7 ml/min; Est GFR (African American) 89.1 ml/min; Est GFR (Non-African American) 76.9 ml/min
--- NOTE | 2021-04-05 07:06 | Anesthesiology Progress Note ---
Date of Service April 05, 2021 Anesthesia Post Procedure Vital Signs Vital Signs: Temp Pulse Pulse Resp BP BP Pulse Ox 04/05/21 06:32 20 131/85 99 04/05/21 05:35 20 134/88 99 04/05/21 04:30 18 126/82 99 04/05/21 03:30 36.5 C 87 18 126/82 98 04/05/21 02:45 18 98 04/05/21 01:55 18 132/83 98 04/05/21 01:54 18 98 04/05/21 01:00 18 143/77 H 96 04/05/21 00:05 20 147/78 H 97 04/04/21 23:15 111 H 148/84 H 04/04/21 23:00 20 98 04/04/21 22:59 36.6 C 110 H 20 154/84 H 98 04/04/21 21:45 108 H 163/79 H 04/04/21 21:42 106 H 98 04/04/21 21:37 106 H 99 04/04/21 21:36 106 H 164/82 H 04/04/21 21:32 108 H 97 04/04/21 21:27 108 H 99 04/04/21 21:26 104 H 173/93 H 04/04/21 21:22 108 H 98 04/04/21 21:17 105 H 169/87 H 97 04/04/21 21:16 106 H 171/95 H 04/04/21 21:12 106 H 99 04/04/21 21:10 102 H 169/97 H 04/04/21 21:09 106 H 166/93 H 04/04/21 21:07 109 H 99 04/04/21 21:06 105 H 159/82 H 04/04/21 21:02 107 H 98 04/04/21 21:00 36.4 C L 18 04/04/21 20:57 108 H 99 04/04/21 20:56 104 H 156/79 H 04/04/21 20:52 105 H 100 04/04/21 20:47 107 H 100 04/04/21 20:46 104 H 161/82 H 04/04/21 20:42 108 H 98 04/04/21 20:40 18 04/04/21 20:37 102 H 100 04/04/21 20:36 101 H 153/83 H 04/04/21 20:32 104 H 100 04/04/21 20:30 18 04/04/21 20:27 101 H 100 04/04/21 20:26 100 H 152/74 H 04/04/21 20:22 98 H 99 04/04/21 20:17 99 H 98 04/04/21 20:16 97 H 125/74 04/04/21 20:12 98 H 98 04/04/21 20:07 97 H 98 04/04/21 20:06 94 H 107/57 L 04/04/21 20:02 100 H 97 04/04/21 20:00 18 04/04/21 19:57 94 H 96 04/04/21 19:56 94 H 96/50 L 04/04/21 19:52 92 H 97 04/04/21 19:50 18 04/04/21 19:47 93 H 96 04/04/21 19:46 94 H 93/51 L 04/04/21 19:44 94 H 92 04/04/21 19:42 94 H 96 04/04/21 19:40 36.4 C L 18 04/04/21 19:37 92 H 95 04/04/21 19:36 90 92/53 L 04/04/21 19:34 91 H 94 04/04/21 19:32 93 H 95 04/04/21 19:30 18 04/04/21 19:27 93 H 96 04/04/21 19:26 89 91/46 L 94 04/04/21 19:25 87 93/47 L 04/04/21 19:22 92 H 90/44 L 96 04/04/21 19:20 20 04/04/21 19:19 91 H 88/47 L 04/04/21 19:17 92 H 91/46 L 96 04/04/21 19:16 93 H 92/45 L 04/04/21 19:12 95 H 96 04/04/21 19:11 93 H 94 04/04/21 19:10 20 04/04/21 19:07 95 H 96 04/04/21 19:03 95 H 106/51 L 94 04/04/21 19:02 95 H 96 04/04/21 19:00 36.4 C L 20 04/04/21 17:19 119 H 100 04/04/21 17:14 110 H 99 04/04/21 17:09 122 H 190/99 H 99 04/04/21 17:04 116 H 100 04/04/21 16:59 114 H 99 04/04/21 16:54 117 H 99 04/04/21 16:50 113 H 184/82 H 04/04/21 16:49 112 H 100 04/04/21 16:44 114 H 100 04/04/21 16:41 116 H 191/88 H 04/04/21 16:39 117 H 100 04/04/21 16:34 118 H 100 04/04/21 16:29 112 H 99 04/04/21 16:24 114 H 99 04/04/21 16:19 111 H 98 04/04/21 16:14 112 H 98 04/04/21 16:09 109 H 174/84 H 99 04/04/21 16:04 113 H 99 04/04/21 15:59 108 H 99 04/04/21 15:54 107 H 98 04/04/21 15:49 106 H 98 04/04/21 15:44 110 H 98 04/04/21 15:40 115 H 181/82 H 04/04/21 15:39 114 H 97 04/04/21 15:34 108 H 99 04/04/21 15:29 111 H 98 04/04/21 15:24 116 H 99 04/04/21 15:19 115 H 99 04/04/21 15:14 115 H 99 04/04/21 15:12 22 04/04/21 15:09 36.7 C 111 H 22 174/90 H 99 04/04/21 15:04 116 H 100 04/04/21 14:59 111 H 99 04/04/21 14:54 114 H 100 04/04/21 14:49 114 H 99 04/04/21 14:44 111 H 99 04/04/21 14:39 108 H 160/83 H 99 04/04/21 14:34 111 H 98 04/04/21 14:29 109 H 99 04/04/21 14:24 113 H 99 04/04/21 14:19 105 H 98 04/04/21 14:14 107 H 100 04/04/21 14:09 104 H 160/81 H 99 04/04/21 14:04 109 H 100 09/29/21 14:00 18 04/04/21 13:59 105 H 100 04/04/21 13:54 106 H 100 04/04/21 13:49 105 H 100 04/04/21 13:44 106 H 100 04/04/21 13:39 103 H 142/73 H 99 04/04/21 13:34 106 H 99 04/04/21 13:29 108 H 99 04/04/21 13:24 105 H 98 04/04/21 13:19 101 H 98 04/04/21 13:14 99 H 98 04/04/21 13:10 98 H 134/68 04/04/21 13:09 97 H 98 04/04/21 13:04 100 H 98 04/04/21 12:59 102 H 100 04/04/21 12:54 102 H 100 04/04/21 12:49 101 H 100 04/04/21 12:44 99 H 99 04/04/21 12:42 97 H 110/57 L 04/04/21 12:39 99 H 106/54 L 85 L 04/04/21 12:34 90 98 04/04/21 12:29 92 H 97 04/04/21 12:24 92 H 99 04/04/21 12:19 101 H 99 04/04/21 12:14 103 H 99 04/04/21 12:11 101 H 115/58 L 04/04/21 12:09 90 98 04/04/21 12:04 90 98 04/04/21 12:00 36.9 C 18 04/04/21 11:59 101 H 99 04/04/21 11:54 101 H 97 04/04/21 11:49 106 H 99 04/04/21 11:44 112 H 98 04/04/21 11:39 114 H 140/89 90 04/04/21 11:34 111 H 99 04/04/21 11:29 114 H 99 04/04/21 11:24 115 H 98 04/04/21 11:19 111 H 98 04/04/21 11:14 110 H 98 04/04/21 11:09 109 H 149/83 H 98 04/04/21 11:04 109 H 97 04/04/21 10:59 110 H 99 04/04/21 10:54 109 H 99 04/04/21 10:49 112 H 96 04/04/21 10:44 108 H 97 04/04/21 10:40 110 H 134/67 04/04/21 10:39 107 H 98 04/04/21 10:34 108 H 99 04/04/21 10:29 110 H 99 04/04/21 10:24 110 H 99 04/04/21 10:19 106 H 98 04/04/21 10:14 110 H 99 04/04/21 10:10 108 H 142/84 H 04/04/21 10:09 106 H 98 04/04/21 10:04 107 H 98 04/04/21 10:00 20 04/04/21 09:59 111 H 98 04/04/21 09:54 109 H 98 04/04/21 09:49 105 H 97 04/04/21 09:44 106 H 99 04/04/21 09:39 106 H 140/85 97 04/04/21 09:34 104 H 97 04/04/21 09:29 111 H 98 04/04/21 09:24 103 H 98 04/04/21 09:19 104 H 98 04/04/21 09:14 106 H 98 04/04/21 09:09 107 H 131/77 98 04/04/21 09:04 108 H 99 04/04/21 09:00 04/04/21 08:59 107 H 99 04/04/21 08:54 108 H 99 04/04/21 08:49 108 H 98 04/04/21 08:44 120 H 98 04/04/21 08:39 104 H 135/82 98 04/04/21 08:36 105 H 140/81 04/04/21 08:34 109 H 99 04/04/21 08:29 107 H 98 04/04/21 08:24 110 H 99 04/04/21 08:19 108 H 99 04/04/21 08:14 110 H 99 04/04/21 08:09 109 H 98 04/04/21 08:04 109 H 98 04/04/21 08:00 04/04/21 07:59 108 H 98 04/04/21 07:54 108 H 98 04/04/21 07:49 114 H 98 04/04/21 07:44 110 H 99 04/04/21 07:39 110 H 98 04/04/21 07:38 106 H 137/76 04/04/21 07:36 112 H 211/89 H 04/04/21 07:34 117 H 99 04/04/21 07:29 112 H 98 04/04/21 07:24 110 H 99 04/04/21 07:20 112 H 159/96 H 04/04/21 07:19 113 H 98 04/04/21 07:14 123 H 98 04/04/21 07:09 117 H 98 Pain Intensity Bilateral Abdomen: Pain Intensity: 2 Transfer of Care Handoff Completed per policy Notes Mental Status: alert / awake / arousable Patient Amnestic to Procedure: Yes Nausea / Vomiting: adequately controlled Pain: adequately controlled Airway Patency, RR, SpO2: stable & adequate BP & HR: stable & adequate Hydration State: stable & adequate Anesthetic Complications: no major complications apparent
[2021-04-05] MEDS: DOCUSATE SODIUM 100 MG CAP PO SCH ×2 (08:38→20:32)
[2021-04-05] MEDS: SIMETHICONE 80 MG CHEW PO SCH ×4 (08:38→20:31)
[2021-04-05] MEDS: LABETALOL HCL 200 MG TAB PO SCH ×2 (08:38→21:31)
[2021-04-05] MEDS: MAGNESIUM SULFATE / WTR 40 GM/1,000 ML BAG IV SCH (08:40)
--- NOTE | 2021-04-05 08:51 | Obstetrical Progress Note ---
Date of Service April 05, 2021 Assessment & Plan (1) Preeclampsia, severe: Day 1 s/p rLTCS. Doing well. Denies PIH symptoms. BPs normal overnight. On Labetalol 200mg BID. Labs normal. Excellent UOP. Continue Mg for 24 hours post delivery. Will arrange for Hematology consult for FVL heterozygote, post c- section with COVID. (2) Encounter for care and examination after delivery: Subjective Ambulation: ambulating normally Voiding: no voiding problems Passing Gas:: Yes Diet Tolerance:: regular diet Lochia:: Moderate Feeding Type:: breast feeding Doing well. On Mg for severe preeclampsia. Denies PIH symptoms. Physical Exam Constitutional WD/WN, vitals as above Respiratory normal respiratory effort; no respiratory distress and no labored breathing Gastrointestinal (Abdomen) Inspection/Auscultation: abdomen normal to inspection; abdomen not distended Percussion/Palpation: abdomen soft; abdomen nontender, no guarding and abdomen not rigid Incision: Dressing C/D/I Genitourinary OB Exam Abdomen: + fundal height Fundus: + firm and + relation to umbilicus (Below); not tender or not boggy Results & Data ([facility]) Vital Signs (Past 12 Hours) Vital Signs Temp Pulse Pulse Pulse Resp BP BP 04/05/21 08:36 80 20 127/84 04/05/21 07:30 20 04/05/21 07:20 36.6 C 87 20 123/83 04/05/21 06:32 20 131/85 04/05/21 05:35 20 134/88 04/05/21 04:30 18 126/82 04/05/21 03:30 36.5 C 87 18 126/82 04/05/21 02:45 18 04/05/21 01:55 18 132/83 04/05/21 01:54 18 04/05/21 01:00 18 143/77 H 04/05/21 00:05 20 147/78 H 04/04/21 23:15 111 H 148/84 H 04/04/21 23:00 20 04/04/21 22:59 36.6 C 110 H 20 154/84 H 04/04/21 21:45 108 H 163/79 H 04/04/21 21:42 106 H 04/04/21 21:37 106 H 04/04/21 21:36 106 H 164/82 H 04/04/21 21:32 108 H 04/04/21 21:27 108 H 04/04/21 21:26 104 H 173/93 H 04/04/21 21:22 108 H 04/04/21 21:17 105 H 169/87 H 04/04/21 21:16 106 H 171/95 H 04/04/21 21:12 106 H 04/04/21 21:10 102 H 169/97 H 04/04/21 21:09 106 H 166/93 H 04/04/21 21:07 109 H 04/04/21 21:06 105 H 159/82 H 04/04/21 21:02 107 H 04/04/21 21:00 36.4 C L 18 04/04/21 20:57 108 H 04/04/21 20:56 104 H 156/79 H 04/04/21 20:52 105 H 04/04/21 20:47 107 H 04/04/21 20:46 104 H 161/82 H Pulse Ox 04/05/21 08:36 100 04/05/21 07:30 100 04/05/21 07:20 99 04/05/21 06:32 99 04/05/21 05:35 99 04/05/21 04:30 99 04/05/21 03:30 98 04/05/21 02:45 98 04/05/21 01:55 98 04/05/21 01:54 98 04/05/21 01:00 96 04/05/21 00:05 97 04/04/21 23:15 04/04/21 23:00 98 04/04/21 22:59 98 04/04/21 21:45 04/04/21 21:42 98 04/04/21 21:37 99 04/04/21 21:36 04/04/21 21:32 97 04/04/21 21:27 99 04/04/21 21:26 04/04/21 21:22 98 04/04/21 21:17 97 04/04/21 21:16 04/04/21 21:12 99 04/04/21 21:10 04/04/21 21:09 04/04/21 21:07 99 04/04/21 21:06 04/04/21 21:02 98 04/04/21 21:00 04/04/21 20:57 99 04/04/21 20:56 04/04/21 20:52 100 04/04/21 20:47 100 04/04/21 20:46
[2021-04-05] MEDS: PRENATAL VITAMIN 1 TAB PO SCH (09:10)
[2021-04-05] MEDS: FERROUS SULFATE 325 MG TAB PO SCH (09:10)
[2021-04-05] MEDS: ENOXAPARIN INJ 40 MG/0.4 ML SYR SQ SCH (10:52)
[2021-04-05] MEDS ORDERED: diphenhydrAMINE Capsule 25 MG CAP PO PRN (12:30)
[2021-04-05] MEDS ORDERED: PROMETHAZINE HCL 25 MG in SODIUM CHLORIDE 0.9% 50 ML IV PRN (12:30)
[2021-04-05] MEDS ORDERED: diphenhydrAMINE 50 MG/ML VIAL IV PRN (12:30)
[2021-04-05] MEDS ORDERED: KETOROLAC 30 MG/ML VIAL IV PRN (12:30)
[2021-04-05] MEDS ORDERED: ONDANSETRON INJ 2 MG/ML 2 ML VIAL IV PRN (12:30)
[2021-04-05] MEDS: NYSTATIN POWDER 15GM BTL EXT SCH ×2 (17:11→20:33)
[2021-04-05] MEDS ORDERED: Nursing to Pharmacy Communication SCH (17:45)
[2021-04-05] MEDS: IBUPROFEN 600 MG TAB PO PRN ×2 (18:24→21:56)
[2021-04-05] MEDS: oxyCODONE/ACETAMINOPHEN 5mg/325mg TAB PO PRN ×2 (18:25→21:57)
[2021-04-05] MEDS ORDERED: bisacodyL 5 MG TABEC PO SCH (20:00)
[2021-04-06] MEDS: oxyCODONE/ACETAMINOPHEN 5mg/325mg TAB PO PRN ×3 (01:47→21:13)
[2021-04-06] MEDS: IBUPROFEN 600 MG TAB PO PRN ×4 (01:48→21:14)
--- NOTE | 2021-04-06 06:52 | Obstetrical Progress Note ---
Date of Service April 06, 2021 Assessment & Plan (1) COVID-19 affecting , antepartum: (2) Preeclampsia, severe: (3) delivery delivered: Doing very well. Off mag for 12 hours now with good diuresis. No s/s of worsening disease. Blood pressures are good on labetolol 200mg bid. Plan continued monitoring today and likely d/c tomorrow. Will likely go home with Lovenox given Factor V, covid, obesity, c/s. Dr. Foster should be around to see the patient today. Subjective Ambulation: ambulating normally Voiding: no voiding problems Passing Gas:: Yes Diet Tolerance:: regular diet Lochia:: Small Minimal pain. NO s/s of pet. Feeling really well. Notes a mild cough, unchanged. Physical Exam Constitutional WD/WN, vitals as above Neck trachea midline, no thyromegaly Respiratory normal respiratory effort, lungs clear to auscultation Cardiovascular RRR, no murmur, no edema Extremities: + edema (trace); no calf tenderness Gastrointestinal (Abdomen) normal bowel sounds, soft, nontender, no hepatosplenomegaly incision --c/d/i Neurologic patellar DTR's 2+ bilat, sensation intact Results & Data ([facility]) Vital Signs (Past 12 Hours) Vital Signs Temp Pulse Resp BP Pulse Ox 04/06/21 05:20 36.4 C L 85 17 130/84 100 04/06/21 01:30 36.6 C 81 16 120/77 99 04/05/21 19:55 36.8 C 85 17 124/85 97
[2021-04-06] MEDS: SIMETHICONE 80 MG CHEW PO SCH ×4 (08:15→21:14)
[2021-04-06] MEDS: DOCUSATE SODIUM 100 MG CAP PO SCH ×2 (08:15→21:13)
[2021-04-06] MEDS: LABETALOL HCL 200 MG TAB PO SCH ×2 (08:16→21:13)
[2021-04-06] MEDS: ENOXAPARIN INJ 40 MG/0.4 ML SYR SQ SCH (08:16)
[2021-04-06] MEDS: FERROUS SULFATE 325 MG TAB PO SCH ×3 (08:19→14:43)
[2021-04-06] MEDS: PRENATAL VITAMIN 1 TAB PO SCH (08:19)
[2021-04-06 08:24] LABS: Hematocrit (blood only) 28.2 % (37-47); Hemoglobin 9.3 g/dL (12.0-16.0)
[2021-04-06] MEDS: MAGNESIUM SULFATE / WTR 40 GM/1,000 ML BAG IV SCH (08:29)
[2021-04-06] MEDS: NYSTATIN POWDER 15GM BTL EXT SCH ×3 (08:29→21:12)
--- NOTE | 2021-04-06 09:07 | Consultation Report ---
HEMATOLOGY CONSULTATION DATE OF SERVICE 04/06/2021. REASON FOR CONSULTATION: A 40-year-old female status post section, heterozygous for factor V Leiden mutation, recommendations for prophylactic anticoagulation. HISTORY OF PRESENT ILLNESS: The patient is a 40-year-old female who was admitted for electi ve section on 04/03/2021. The patient had some issues, particularly gestational di abetes mellitus and a threat of preeclampsia. The patient apparently was a couple weeks early and un fortunately contracted COVID-19. COVID-19 symptoms have been minimal per se. Interestingly, she had had COVID in May of 2020 and continued without revaccination. Healthy female was subseq uently delivered via a section. I was contacted by Dr. Garrison to review Valentina's case to de termine whether it would be appropriate for her to have prophylactic anticoagulation. Maria E caicedo herself has never had a DVT, PE or superficial thrombophlebitis. She believes her mother was het erozygous for factor V Leiden. Interestingly, her grandfather apparently was homozygous for factor V Leiden mutation and had extensive history of thrombosis prior to his . The patient otherwise h as no other significant comorbid issues and her only surgical history prior to section was g astric sleeve in 2016. PAST MEDICAL HISTORY: Heterozygous for factor V Leiden mutation, obstructive sleep apnea and gestati onal diabetes. PAST SURGICAL HISTORY: Status post gastric sleeve in 2016. MEDICATIONS: The patient was on sliding scale insulin and daily aspirin leading up to secti on. ALLERGIES: SULFA. FAMILY HISTORY: As per HPI. SOCIAL HISTORY: The patient is , resides with her spouse. She is a nonsmoker, nondrinker, no nillicit drug user. REVIEW OF SYSTEMS: CONSTITUTIONAL: Negative for fevers, chills or sweats. She is not anorexic, in fact, moderately obe se. SKIN: No rashes or lesions. No history of dermatoses. HEENT: Negative for headaches, lightheadedness or dizziness. She wears corrective lenses. No heari ng deficits. No sinus symptoms, sore throat or dysphagia. LYMPH: No history of lymphoproliferative disease. CARDIAC: Negative for coronary artery disease. No current angina or palpitations. PULMONARY: No history of COPD. She is not short of breath, dyspneic or orthopneic. No cough or hem optysis. GASTROINTESTINAL: Negative for abdominal pain, nausea, vomiting, diarrhea, constipation, hematochezi a or melena stools. GENITOURINARY: No hematuria, dysuria, urinary incontinence. PSYCHIATRIC: Negative for anxiety, depression, or psychoses. ENDOCRINE: Positive for gestational diabetes. MUSCULOSKELETAL: No arthralgias or myalgias. No focal muscle weakness. HEMATOLOGIC: Positive for factor V Leiden (heterozygous). PHYSICAL EXAMINATION: GENERAL: Very pleasant 40-year-old female in no acute distress. VITAL SIGNS: Temperature 36.4, pulse 85, respiratory rate 17, blood pressure 130/84. SKIN: Warm, dry, noncyanotic without petechia, rash or ecchymosis. HEENT: Atraumatic, normocephalic. Eyes, PERRLA, EOMI. Throat clear. Tongue midline. Mucous membr anes are moist. NECK: Supple. HEART: Regular rate and rhythm. No clicks, rubs, murmurs or gallops. LUNGS: Clear to auscultation bilaterally. ABDOMEN: Soft, nontender, nondistended, without palpable hepatosplenomegaly. EXTREMITIES: No clubbing, cyanosis or edema. MUSCULOSKELETAL: Strength and pulses are equal in all 4 quadrants. NEUROLOGIC: She is awake, alert and oriented x3. Cranial nerves are grossly intact. LABORATORY DATA: WBC count 15,640, hemoglobin 10.4, platelet count 229,000. Sodium 134, potassium 4 .5, chloride 103, carbon dioxide 16, creatinine 0.78, BUN 10. IMPRESSION: 1. Status post section delivering a healthy female infant. 2. Factor V Leiden positivity (heterozygous). 3. Gestational diabetes mellitus. 4. Prophylactic anticoagulation, Lovenox subcutaneously 40 mg daily. PLAN: I was asked by the obstetric service to weigh in on Valentina's case. She is a moderately obese 40-year-old female status post section delivering a healthy female . Valentina has no pe rsonal history of thrombosis. She points out her grandfather was homozygous, apparently had issues w ith clots in the past. By current guidelines through the [place] [employer] and I think those guidelines mirror the [place] [employer], patients who are factor V Leiden positive , especially a heterozygous individuals without prior history, generally do not need antepartum or po stpartum anticoagulation. However, in patients who have undergone section, 80% of thrombose s which occur post-delivery are individuals status post . Thus, my rationale in addition to t he patient's COVID status, have decided to proceed with Lovenox 40 mg subcutaneously daily for the ne xt 4 weeks. I explained my rationale to Valentina and her and they have no issue with daily Neda enox. I do not necessarily need to see Valentina in followup. Certainly, if she has any issues with Lo venox administration, feel free to contact my office for guidance. I have no further recommendations . Questions and concerns were addressed at the bedside this morning. Thank you very much for allowing me to participate in the care of this very pleasant patient. Job ID: [id number]
[2021-04-06] MEDS ORDERED: bisacodyL 10 MG SUPP PR PRN (19:02)
[2021-04-07] MEDS: IBUPROFEN 600 MG TAB PO PRN ×2 (01:06→04:50)
[2021-04-07] MEDS: oxyCODONE/ACETAMINOPHEN 5mg/325mg TAB PO PRN (01:07)
[2021-04-07] MEDS: SIMETHICONE 80 MG CHEW PO SCH (08:19)
[2021-04-07] MEDS: PRENATAL VITAMIN 1 TAB PO SCH (08:19)
[2021-04-07] MEDS: FERROUS SULFATE 325 MG TAB PO SCH (08:19)
[2021-04-07] MEDS: LABETALOL HCL 200 MG TAB PO SCH (08:20)
[2021-04-07] MEDS: DOCUSATE SODIUM 100 MG CAP PO SCH (08:20)
[2021-04-07] MEDS: ENOXAPARIN INJ 40 MG/0.4 ML SYR SQ SCH (08:21)
--- NOTE | 2021-04-07 08:22 | Obstetrical Progress Note ---
Date of Service April 07, 2021 Assessment & Plan (1) COVID-19 affecting , antepartum: (2) Preeclampsia, severe: (3) delivery delivered: POD3 s/p pLTCS VSS, doing well on labetalol 200 BID PET - will d/c home on labetalol 200 BID, parameters reviewed. Plan for 1 wk BP check COVID - given PET, covid, age, obesity, FVL, will d/c home lovenox 40mg/d x 4 wks per heme -stable for d/c home today Subjective Ambulation: ambulating normally Voiding: no voiding problems Passing Gas:: Yes Diet Tolerance:: regular diet Lochia:: Small Feeding Type:: breast feeding Pain well managed with medication Review of Systems Denies fevers, chills, n/v, COOMBS, CP, SOB Physical Exam Constitutional WD/WN, vitals as above no acute distress Respiratory normal respiratory effort, lungs clear to auscultation Cardiovascular RRR, no murmur, no edema Gastrointestinal (Abdomen) Inspection/Auscultation: abdomen normal to inspection and + abdominal surgical scar (c/d/i) Percussion/Palpation: abdomen soft; abdomen nontender fundus firm at umbilicus and NT Musculoskeletal BLE symmetric, nonerythematous, nontender Results & Data ([facility]) Vital Signs (Past 12 Hours) Vital Signs Temp Pulse Resp BP Pulse Ox 04/07/21 00:51 98.2 F 79 18 122/78 95
[2021-04-07] MEDS: NYSTATIN POWDER 15GM BTL EXT SCH (08:26)
--- NOTE | 2021-04-10 22:33 | Discharge Summary (DS) ---
DATE OF ADMISSION: 04/03/2021 DATE OF DISCHARGE: 04/07/2021 HOSPITAL COURSE: The patient was admitted for preeclampsia with severe features at 36 weeks 3 days g estational age. She was started on magnesium and started on induction process. During the induction process, the patient was noted to have minimal progression and ultimately elected for a primary cesa rean section. A primary low transverse section was performed without complication. The pat ient was maintained on mag for 24 hours post-delivery, at which time she was stable for coming off ma gnesium with good diuresis and blood pressure is well controlled. All preeclampsia labs normal. The patient remained in-house until postoperative day 3, at which time she was stable for discharge. Di scharged home in stable condition. The patient was provided with both written and verbal discharge i nstructviry. Job ID: [id number]
== END 2021-04-07 12:10 | disposition home or self-care (01) | DRG 786 ==
LOC: OPB 16:07 → 4W 16:10 → 3E 04-04 22:02
DX: O98.511 Other viral diseases complicating pregnancy, first trimester; O99.111 Other diseases of the blood and blood-forming organs and certain disorders involving the immune mechanism complicating pregnancy, first trimester; O36.63X0 Maternal care for excessive fetal growth, third trimester, not applicable or unspecified; O14.14 Severe pre-eclampsia complicating childbirth; Z88.2 Allergy status to sulfonamides; O24.424 Gestational diabetes mellitus in childbirth, insulin controlled; Z3A.36 36 weeks gestation of pregnancy; D68.51 Activated protein C resistance; Z37.0 Single live birth; U07.1 COVID-19; Z20.822 Contact with and (suspected) exposure to COVID-19; O09.813 Supervision of pregnancy resulting from assisted reproductive technology, third trimester

== ENCOUNTER 2023-01-20 07:13 | Inpatient (IN) ==
--- NOTE | 2023-01-09 13:43 | Anesthesiology Consultation ---
Date of Service January 09, 2023 Assessment & Plan (1) Encounter for pre-operative examination: Plan - s/p epidural L2-L3 1 attempt. - COVID screening: Per auto parts clerk on 01/09/2023: Travel screen negative, no known COVID-19 positive contacts or current COVID-19 related symptoms in past 2 weeks. To surgeon's discretion if preop COVID testing is needed. 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 History Surgery Operation Date: 01/20/23 07:30 Proposed Procedures p Section (Delivery of Baby Through Abdominal Incision) - Daljit Moralez MD, FACOG Height/Weight Height: 5 ft 10 in Weight: 151.5 kg Allergies Allergy/AdvReac Type Severity Reaction Status Date / Time Sulfa (Sulfonamide Allergy hives Verified 01/09/23 12:52 Antibiotics) Medications Home Medications Medication Instructions Recorded Confirmed Last Taken prenat.vits,endy,dfa-gwzw-frroc 1 tab PO QPM 09/11/20 01/09/23 Unknown aspirin 81 mg tablet,delayed 81 mg PO QPM 10/11/22 01/09/23 Unknown release (Adult Low Dose Aspirin) acetone (urine) test (Ketone Urine #50 ea 11/28/22 01/03/23 Unknown Test strips) pen needle, diabetic 32 gauge x #100 ea 11/29/22 01/03/23 Unknown 5/32" (BD Ultra-Fine Hedy Pen Needle) insulin NPH isoph U-100 human 100 30 unit subcut QPM 01/09/23 01/09/23 Unknown unit/mL (3 mL) subcutaneous pen (Novolin N FlexPen) insulin aspart U-100 100 unit/mL 8 unit subcut TID 01/09/23 01/09/23 Unknown (3 mL) subcutaneous pen (Novolog FlexPen U-100 Insulin aspart) Past Medical History Medical History Factor V Leiden Gestational diabetes History of pre-eclampsia Insulin controlled gestational diabetes mellitus (GDM) during Past Family History Family History Grandfather (Maternal) Deep vein thrombosis Factor V Leiden homozygous Sister Factor V Leiden heterozygous Other No family history of adverse response to anesthesia Denies family history of Ovarian cancer Breast cancer Colorectal cancer Past Surgical History Surgical History History of History of wisdom tooth extraction Hx of bariatric surgery gastric sleeve 2016 Social History Smoking Status: Former smoker Do You Dip or Chew Tobacco: No Smoking End Date: 2008 Hx Alcohol Use: No Hx Substance Use: Yes substance use type: marijuana Substance Use Type Other:: medical marijuana Last Used Substance Other:: not currently using while preg -- last use > 1 year ago
[~2023-01-20 07:13] MED LIST: CITRIC ACID/SODIUM CITRATE 15 ML UDC PO SCH
[2023-01-20 07:40] LABS: Basophils # (auto) 0.02 K/uL (0-0.2); Basophils % (auto) 0.2 %; Eosinophils # (auto) 0.08 K/uL (0-0.50); Eosinophils % (auto) 0.7 %; Hematocrit (blood only) 35.3 % (37.0-47.0); Hemoglobin 11.8 g/dl (12.0-16.0); Immature Granulocytes # (auto) 0.05 K/uL (0.01-0.20); Immature Granulocytes % (auto) 0.4 %; Lymphocytes # (auto) 3.43 K/uL (1.2-3.4); Lymphocytes % (auto) 28.8 %; Mean Corpuscular Hemoglobin 31.4 pg (25.0-34.0); Mean Corpuscular Hgb Conc 33.4 g/dL (32.0-36.0); Mean Corpuscular Volume 93.9 fL (80.0-100.0); Mean Platelet Volume 9.6 fL (9.4-12.4); Monocytes # (auto) 0.91 K/uL (0.11-0.59); Monocytes % (auto) 7.7 %; Neutrophils % (auto) 62.2 %; Platelet Count 283 K/uL (130-400); RDW Coefficient of Variation 12.9 % (11.5-14.5); RDW Standard Deviation 43.8 fL (36.4-46.3); Red Blood Count 3.76 M/uL (4.20-5.40); White Blood Count 11.89 K/ul (4.8-10.8)
--- NOTE | 2023-01-20 08:17 | History & Physical Report ---
Date of Service January 20, 2023 Assessment & Plan (1) Encounter for pre-operative examination: Plan: Patient NPO. Continue routine OB monitoring. Patient to be admitted on 01/20 for scheduled repeat . (2) Encounter for supervision of normal in multigravida: (3) Heterozygous factor V Leiden affecting , antepartum: (4) Insulin controlled gestational diabetes mellitus (GDM) during : (5) Polyhydramnios affecting : Admission and Anticipated Discharge Date Admission Date: January 20, 2023 History of Present Illness Chief Complaint: Scheduled repeat . Primary Care Provider: Ricardo Santillan DO Pt is a 42 y/o female currently at 39 0/7 WGA with an MARIAM of 01/26/23 as determined by ultrasound who is here for scheduled repeat . Her was complicated by GDM on insulin and polyhydramnios. She states that her last delivery became a after a trial of labor via induction that failed to progress and that she struggled with because she had COVID at the time and had difficulty with breathing. She is feeling well today. She has had regular appointments with OB. Patient has a history of Factor V Leiden. Contractions; no movement; yes Fluid loss; no Bloody show; no labs: Rh +, rubella immune, GBS neg OB Hx: Bilingual Patient Support Caseworker Labs: no STDs (HIV/G/C/RPR/VDRL all neg) Admission labs: Hgb: 11.8 Hct: 35.3 WBC: 11.9 Plt: 283 Allergies Allergy/AdvReac Type Severity Reaction Status Date / Time Sulfa (Sulfonamide Allergy hives Verified 01/17/23 08:27 Antibiotics) Home Medications Medication Instructions Recorded Confirmed Type prenat.vits,endy,xuo-vbgs-squhw 1 tab PO QPM 09/11/20 01/20/23 History aspirin 81 mg tablet,delayed 81 mg PO QPM 10/11/22 01/20/23 History release (Adult Low Dose Aspirin) acetone (urine) test (Ketone Urine #50 ea 11/28/22 01/17/23 Rx Test strips) pen needle, diabetic 32 gauge x #100 ea 11/29/22 01/17/23 Rx 5/32" (BD Ultra-Fine Hedy Pen Needle) insulin NPH isoph U-100 human 100 30 unit subcut QPM 01/09/23 01/20/23 History unit/mL (3 mL) subcutaneous pen (Novolin N FlexPen) insulin aspart U-100 100 unit/mL 20 unit subcut TID 01/09/23 01/20/23 History (3 mL) subcutaneous pen (Novolog FlexPen U-100 Insulin aspart) Patient History Medical History Factor V Leiden Gestational diabetes History of pre-eclampsia Insulin controlled gestational diabetes mellitus (GDM) during Surgical History History of History of wisdom tooth extraction Hx of bariatric surgery gastric sleeve 2016 Family History Grandfather (Maternal) Deep vein thrombosis Factor V Leiden homozygous Sister Factor V Leiden heterozygous Other No family history of adverse response to anesthesia Denies family history of Ovarian cancer Breast cancer Colorectal cancer Social History Smoking Status: Former smoker Smoking End Date: 2008; Second Hand Exposure: No; Do You Dip or Chew Tobacco: No; Tobacco Cessation Education Requested by Patient: No Hx Alcohol Use: No Hx Substance Use: No Preferred Language: Greenlandic Communication Ability: Effective Business Development Executive Required: No Beliefs That Will Affect Care: Jehovah'S Witness marital status: marital status details: tod Looney, (34) [phone] Current Living Situation: Spouse Current Living Situation Comment: lives with spouse and daughter, 3 cats, spouse to change litter current occupational status: employed 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 No acute distress. Cardiac: Regular rate and rhythm, no murmurs, gallops, or rubs. Respiratory: Clear to auscultation bilaterally, no wheezes, rales, or rhonchi. No increased work of breathing. No respiratory distress. Abdomen: Gravid, nontender uterus. Lower extremities: No lower extremity edema or swelling. No deep calf pain. Results & Data Vital Signs (Past 12 Hours) Vital Signs Pulse BP 01/20/23 07:33 97 H 113/75 Resident Activity Tracking Resident Involvement: Resident Care Provided Care Provided: OB Delivery
[2023-01-20] MEDS ORDERED: fentaNYL citrate PF 100 MCG/2 ML VIAL ONE (08:32)
[2023-01-20] MEDS ORDERED: PHENYLEPHRINE 100MCG/ML 5ML SYR ONE (08:32)
[2023-01-20] MEDS ORDERED: ONDANSETRON INJ 2 MG/ML 2 ML VIAL ONE (08:32)
[2023-01-20] MEDS ORDERED: MoRPHine SULFATE PF 1 MG/ML 10 ML AMP/VIAL ONE (08:32)
[2023-01-20] MEDS ORDERED: OXYTOCIN 10 UNITS/ML VIAL ONE (08:32)
[2023-01-20] MEDS ORDERED: SODIUM CHLORIDE 0.9% 250 ML IV PRN (08:49)
--- NOTE | 2023-01-20 09:20 | History & Physical Report ---
Date of Service January 20, 2023 Assessment & Plan (1) resulting from in vitro fertilization, antepartum: Plan: Patient is scheduled for a section she has had a prior she does not wish to wait further for labor in as being complicated by the above factors in the history of present illness she is here for repeat she does not wish a tubal ligation we discussed the risks of surgery can be somewhat higher with higher BMI and prior section with scar tissue including damage to internal organs full consent signed with the patient Repeat section. The patient was counseled to the nature of the procedure including alternatives such as labor. Risks were discussed including bleeding infection injury to bowel bladder ureter vessels and even baby. The risks of internal organ injury were discussed as being higher with prior sections. Deep Vein Thrombosis, pulmonary embolus and breakdown of the incision discussed. Deep vein thrombosis pulmonary embolus hernia and failure of the incision to heal were discussed Patient verbalized understanding of this and was given ample time to ask questions Admission and Anticipated Discharge Date Admission Date: January 20, 2023 History of Present Illness Primary Care Provider: Ricardo Santillan DO MARIAM Calculator Estimated Delivery Date Method Current Current Estimate 01/26/23 Ultrasound #1 38w 5d : 2 Full term: 0 Premature: 1 Total Number of Induced Abortions: 0 Total Number of Spontaneous Abortions: 0 Ectopics: 0 Multiple births: 0 Number of Living Children: 1 and Delivery Plans C/S SCHEDULED FOR 01/20/[address] HORTON AND DR. SMALL ASSIST AMA>40@del *Anatomy Scan @ 20wks * Echo 22-24wks (11[place] [facility] [place] *Growth scan @32wks *Weekly NST's @36 wks *Twice weekly NST @38wks *Weekly INEZ's @38wks *Deliver by 40 wks GDM on insulin *Wkly NSTs @32wks and Twice wkly @36wks *Serial growth US @28wks *Deliver by [facility] IVF w/ ICSI * [place]11[place] [facility] [place] Normal fECHO *Growth US Q4wks @28wks *Weekly NSTs @36wks *Weekly INEZ's @36wks(ICSI only) Obesity (BMI 40 and higher @ beginning of ) *Growth US @ 32wks *Weekly NSTs @ 34wks *BMI 40 or greater offer detailed/level II anatomy at [facility] *BMI 40 or above offer delivery by [facility]. Hx PreEclampsia with prior - ASA 81mg daily Factor 5 Leiden heterozygote no prior event lovenox 6 weeks PP Polyhydramnios *Weekly NSTs @ Dx *Weekly AFIs @ Dx *If pocket >16 refer to [facility] *Deliver between [id number] Allergies Allergy/AdvReac Type Severity Reaction Status Date / Time Sulfa (Sulfonamide Allergy hives Verified 01/17/23 08:27 Antibiotics) Home Medications Medication Instructions Recorded Confirmed Type prenat.vits,endy,zmn-jevp-gekdh 1 tab PO QPM 09/11/20 01/20/23 History aspirin 81 mg tablet,delayed 81 mg PO QPM 10/11/22 01/20/23 History release (Adult Low Dose Aspirin) acetone (urine) test (Ketone Urine #50 ea 11/28/22 01/17/23 Rx Test strips) pen needle, diabetic 32 gauge x #100 ea 11/29/22 01/17/23 Rx 5/32" (BD Ultra-Fine Hedy Pen Needle) insulin NPH isoph U-100 human 100 30 unit subcut QPM 01/09/23 01/20/23 History unit/mL (3 mL) subcutaneous pen (Novolin N FlexPen) insulin aspart U-100 100 unit/mL 20 unit subcut TID 01/09/23 01/20/23 History (3 mL) subcutaneous pen (Novolog FlexPen U-100 Insulin aspart) Patient History Medical History Factor V Leiden Gestational diabetes History of pre-eclampsia Insulin controlled gestational diabetes mellitus (GDM) during Surgical History History of History of wisdom tooth extraction Hx of bariatric surgery gastric sleeve 2015 Family History Grandfather (Maternal) Deep vein thrombosis Factor V Leiden homozygous Sister Factor V Leiden heterozygous Other No family history of adverse response to anesthesia Denies family history of Ovarian cancer Breast cancer Colorectal cancer Social History Smoking Status: Former smoker Smoking End Date: 2008; Second Hand Exposure: No; Do You Dip or Chew Tobacco: No; Tobacco Cessation Education Requested by Patient: No Hx Alcohol Use: No Hx Substance Use: No Preferred Language: Romanian Communication Ability: Effective Mailing Section Clerk Required: No Beliefs That Will Affect Care: Protestant marital status: marital status details: tod Looney, (34) [phone] Current Living Situation: Spouse Current Living Situation Comment: lives with spouse and daughter, 3 cats, spouse to change litter current occupational status: employed 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 [employer] Safety Concerns: Feels Safe At This Time Assistive Devices: Contacts and Glasses Review of Systems as per Subjective / HPI Physical Exam Constitutional: WD/WN, vitals as above well developed and well nourished Respiratory: normal respiratory effort, lungs clear to auscultation normal respiratory effort Cardiovascular: RRR, no murmur, no edema Gastrointestinal (Abdomen): normal bowel sounds, soft, nontender, no hepatosplenomegaly Results & Data Vital Signs (Past 12 Hours) Vital Signs Temp Pulse Resp BP 01/20/23 07:45 98.2 F 20 01/20/23 07:33 97 H 113/75 Coding Level of Care Code None Diagnoses resulting from in vitro fertilization, antepartum O09.819
[2023-01-20] MEDS: LACTATED RINGER'S 1,000 ML IV ONE ×2 (10:27→10:57)
[2023-01-20] MEDS ORDERED: HYDROmorphone INJ 0.5 MG/0.5 ML SYR IV PRN (12:29)
[2023-01-20] MEDS ORDERED: NALOXONE HCL 0.08 MG in SYRINGE 1.8 ML IV PRN (12:29)
[2023-01-20] MEDS ORDERED: NALBUPHINE HCL INJ 10 MG/ML AMP IV PRN (12:29)
[2023-01-20] MEDS ORDERED: NALOXONE HCL 1 MG in SODIUM CHLORIDE 0.9% 1000ML 1,000 ML IV PRN (12:29)
[2023-01-20] MEDS ORDERED: LACTATED RINGER'S 500 ML IV PRN (12:29)
[2023-01-20] MEDS ORDERED: ONDANSETRON INJ 2 MG/ML 2 ML VIAL IV PRN (12:29)
[2023-01-20] MEDS ORDERED: ePHEDrine sulfate 50 MG/ML AMP IV PRN (12:29)
[2023-01-20] MEDS ORDERED: NALOXONE HCL 0.4 MG/1 ML VIAL/CARP IV PRN (12:29)
[2023-01-20] MEDS ORDERED: diphenhydrAMINE 50 MG/ML VIAL IV PRN (12:29)
[2023-01-20] MEDS ORDERED: MoRPHine SULFATE PF 1 MG/ML 10 ML AMP/VIAL INT SPINAL ONE (12:29)
[2023-01-20] MEDS ORDERED: SODIUM CHLORIDE 0.9% 1000ML 1,000 ML IV SCH (12:30)
[2023-01-20] MEDS ORDERED: NO NARCOTICS OR SEDATIVES SCH (12:30)
--- NOTE | 2023-01-20 13:13 | Operative Report ---
PG Post Operative Report Pre & Post Diagnosis Operation Date: 01/20/23 11:10 Pre-Op Diagnosis: Gestational Diabetic on Insulin;Previous Caesarean Section Post-Op Diagnosis: Same; Delivery of a live female child at 1242 I identified the patient and participated in the time-out.: Yes Procedure Operation Date: 01/20/23 11:10 Actual Procedures p Section (Delivery of Baby Through Abdominal Incision) - Daljit Moralez MD, FACOG Surgeon Daljit Moralez MD, FACOG Fuel Operator Dr. Arriaza and Dr. Herrera Estimated Blood Loss 600 Findings Consistent with Post-Op Diagnosis Specimens cord blood Description of Procedure Regional anesthetic had been given by anesthesia patient was prepped and draped with a leftward tilt preoperative antibiotics had been given in appropriate timing by anesthesiology. Once the prep was allowed to fully dry timeout was performed. Pickups with teeth were used to test the incision area was found to be adequate for incision as the patient did not feel sharp pain. Scalpel was used to make a Pfannenstiel incision on the lower abdomen. We then cut through the subcutaneous fat down to the level of the anterior rectus sheath fascia this was cut in the midline and then extended laterally with the curved Miguel scissors. At this stage we then placed 2 Joshua clamps on the anterior aspect of the fascia. Using the curved Miguel's we are able to dissect the fascia superiorly away from the rectus muscles. Care was taken to maintain hemostasis. Joshua clamps were then placed to the inferior aspect of the anterior sheath of the fascia. Fascia was then dissected away from the rectus muscles inferiorly towards the pubic bone. A Joshua was then placed in the midline both inferiorly and superiorly. This was to allow exposure by retraction rectus muscles were in the midline with were then able to cut through the peritoneum and then enter the peritoneal cavity. Opening was enlarged to allow exposure of the peritoneal cavity both superiorly and inferiorly. Once adequate space was obtained a bladder retractor was placed to expose the lower segment Metzenbaums were used to dissect the bladder flap inferiorly away from the uterus. This was done sharply bladder retractor was then repositioned to expose the lower segment of the uterus Fresh scalpel was used to make a low transverse incision on the uterus. Uterus was then entered bluntly with the operators finger, membranes ruptured and the opening was enlarged using the operators fingers bluntly pulling superiorly and inferiorly to allow exposure. Baby was delivered by first flexion of the head elevation of the head out of the pelvis and then pressure by the assistant construction superintendent on the maternal abdomen. Baby's head was then delivered mouth and then nares were suctioned and then using gentle traction the baby was fully delivered. Live vigorous infant. Fluid was clear cord clamped and cut cord gases obtained cord blood obtained baby handed to pediatrics. Placenta removed was removed with traction we ensure the entire placenta was removed with a moist lap sponge into the uterus Uterus was then exteriorized. IV Pitocin had been started by anesthesia tone improved there were no extensions the uterus was then closed using 0 Monocryl in a 2 layer closure the first layer closed in a running locked fashion from left to right and then a second closure from left to right in a running nonlocked fashion. At this stage hemostasis was excellent. Uterus was placed back in the peritoneal cavity with suction irrigation out and inspection of the uterus at this stage revealed excellent hemostasis Retractors were removed urine color was clear at this stage of the case we inspected the rectus muscles they were hemostatic fascia was closed with 0 Vicryl subcutaneous fat was irrigated and closed with 3-0 Vicryl skin closed with 4-0 subcuticular Monocryl Note adnexa and uterus normal, minimal adhesions I attest to the content of the Intraoperative Record and any orders documented therein. Any exceptions are noted below. OB Procedure Charges 21049
[2023-01-20] MEDS ORDERED: DIPHTHERIA/TETANUS/PERTUSSIS Vaccine (Tdap, Age 7+yrs) 0.5mL SYR/VL IM ONE (13:20)
[2023-01-20] MEDS ORDERED: SENNA 8.6 MG TAB PO PRN (13:20)
[2023-01-20] MEDS ORDERED: BENZOCAINE 20% AER SPR 82.5 GM CAN EXT PRN (13:20)
[2023-01-20] MEDS ORDERED: MAGNESIUM HYDROXIDE SUSP 30 ML UDC PO PRN (13:20)
[2023-01-20] MEDS ORDERED: HYDROCORTISONE ACETATE 25 MG SUPP PR PRN (13:20)
--- NOTE | 2023-01-20 13:28 | Anesthesiology Progress Note ---
Date of Service January 20, 2023 Anesthesia Post Procedure Vital Signs Vital Signs: Temp Pulse Resp BP Pulse Ox 01/20/23 07:45 36.8 C 20 01/20/23 13:23 89 104/58 L 01/20/23 13:22 80 99 01/20/23 07:33 97 H 113/75 Transfer of Care Handoff Completed per policy Notes Mental Status: alert / awake / arousable and participated in evaluation Patient Amnestic to Procedure: No Nausea / Vomiting: adequately controlled Pain: adequately controlled Airway Patency, RR, SpO2: stable & adequate BP & HR: stable & adequate Hydration State: stable & adequate Neuraxial Anesthesia: was administered and sensory block is resolving Anesthetic Complications: no major complications apparent and Pt Satisfied with anesthetic care
[2023-01-20] MEDS: OXYTOCIN 20 UNITS in LACTATED RINGER'S 1,000 ML IV SCH ×2 (15:58→23:43)
[2023-01-20] MEDS: KETOROLAC 30 MG/ML VIAL IV PRN (16:03)
[2023-01-20] MEDS: SIMETHICONE 80 MG CHEW PO SCH ×2 (17:33→21:07)
[2023-01-20] MEDS: DOCUSATE SODIUM 100 MG CAP PO SCH (21:07)
[2023-01-21] MEDS: KETOROLAC 30 MG/ML VIAL IV PRN (04:43)
--- NOTE | 2023-01-21 06:09 | Obstetrical Progress Note ---
Date of Service <Glenna Herrera DO - Last Filed: 01/21/23 06:09> January 21, 2023 Assessment & Plan <Glenna Herrera DO - Last Filed: 01/21/23 06:09> (1) care following delivery: Feels well today. Eating well, voiding well, ambulating well. Pain well controlled with prn analgesics. Routine care; OOB, ambulation, diet progression as tolerated. Will remove goodman today as per protocol. Plan for discharge 48-72 hours after procedure, likely tomorrow or . After discharge will have 6 week follow-up with Dr. Moralez. <Janice Lan MD, FACOG - Last Filed: 01/21/23 08:12> (1) care following delivery: Day #:: 1 Subjective <Glenna Herrera DO - Last Filed: 01/21/23 06:09> Pt is a 42 y/o female who is POD#1 following repeat delivery at 39 0/7 weeks. was complicated by polyhydramnios and GDM. Pt has a history of Factor V Leiden. Today, the patient states that she is doing well. She states that she has minimal/no pain today and her pain was otherwise well controlled with one dose of toradol. She has not yet gotten up and moved around, passed gas, or had a bowel movement. Goodman is still in place. Has some persistent lochia with some improvement this morning. She has had fluids without nausea/vomiting. She is breast feeding. No concerns at this time. Constitutional: no fever, no chills or no sweats Respiratory: no dyspnea Cardiovascular: no chest pain or no palpitations Breast: no breast pain Genitourinary (female): no dysuria Neurologic: no headache(s) no changes in vision, no headaches Physical Exam <Glenna Herrera DO - Last Filed: 01/21/23 06:09> General: Alert, oriented. No acute distress. Cardiac: Regular rate and rhythm, no murmurs, rubs, or gallops. Respiratory: Clear to auscultation bilaterally, no wheezes/rales/rhonchi. No increased work of breathing. Symmetrical chest rise. No respiratory distress. Abdomen: Soft, nontender, nondistended. Bowel sounds present. Uterus: Uterine fundus firm, palpable below the umbilicus. MARIETTA dressing in place, bandage has good seal at this time. Lower extremities: No lower extremity edema or swelling. No deep calf pain. Results & Data <Glenna Herrera DO - Last Filed: 01/21/23 06:09> Vital Signs (Past 12 Hours) Vital Signs Temp Pulse Resp BP Pulse Ox O2 Del Method 01/21/23 05:00 18 97 01/21/23 04:00 18 96 01/21/23 03:00 18 94 01/21/23 04:05 36.6 C 85 18 99/61 L 97 Room Air 01/21/23 02:00 18 96 01/21/23 01:00 18 94 01/21/23 00:00 18 95 01/20/23 23:00 18 93 01/20/23 23:00 36.9 C 82 18 100/55 L 93 Room Air 01/20/23 22:00 18 98 01/20/23 21:00 18 97 01/20/23 20:00 18 98 01/20/23 19:00 18 96 01/20/23 19:00 Room Air 01/20/23 19:00 36.6 C 96 H 18 111/62 98 Room Air 01/20/23 18:28 20 98 01/20/23 18:28 36.6 C 88 20 102/72 98 Room Air 01/20/23 18:07 18 98 <Janice Lan MD, FACOG - Last Filed: 01/21/23 08:12> Co-Signing Physician Notes Resident Physician Supervision Note: I was present with Dr. Berry during the history and exam. I discussed the case with the resident and agree with the findings and plan as documented in the note. Any exceptions or clarifications are listed here: stable, routine care. needs to start lovenox, eating, voiding, ambulating +flatus. adv diet. po pain meds. abd soft ff 2 down nt, marietta dressing in place. nt calves, tr edema. /RHpos/RI. Documented By: Janice Lan MD, FACOG Resident Activity Tracking <Glenna Herrera DO - Last Filed: 01/21/23 06:09> Resident Involvement: Resident Care Provided Care Provided: OB Delivery
[2023-01-21 06:21] LABS: Basophils # (auto) 0.02 K/uL (0-0.2); Basophils % (auto) 0.2 %; Eosinophils # (auto) 0.12 K/uL (0-0.50); Eosinophils % (auto) 1.1 %; Hematocrit (blood only) 26.4 % (37.0-47.0); Immature Granulocytes # (auto) 0.04 K/uL (0.01-0.20); Immature Granulocytes % (auto) 0.4 %; Lymphocytes # (auto) 2.68 K/uL (1.2-3.4); Lymphocytes % (auto) 24.4 %; Mean Corpuscular Hgb Conc 34.1 g/dL (32.0-36.0); Mean Platelet Volume 9.9 fL (9.4-12.4); Monocytes # (auto) 1.06 K/uL (0.11-0.59); Monocytes % (auto) 9.6 %; Neutrophils # (auto) 7.08 K/uL (1.40-6.50); Neutrophils % (auto) 64.3 %; Platelet Count 222 K/uL (130-400); RDW Coefficient of Variation 12.7 % (11.5-14.5); RDW Standard Deviation 43.7 fL (36.4-46.3); Red Blood Count 2.81 M/uL (4.20-5.40)
[2023-01-21] MEDS ORDERED: DC INTRASPINAL MORPHINE ONE (06:29)
[2023-01-21] MEDS ORDERED: KETOROLAC 30 MG/ML VIAL IV PRN (06:29)
[2023-01-21] MEDS ORDERED: PROMETHAZINE HCL 25 MG in SODIUM CHLORIDE 0.9% 50 ML IV PRN (06:29)
[2023-01-21] MEDS ORDERED: ONDANSETRON INJ 2 MG/ML 2 ML VIAL IV PRN (06:29)
[2023-01-21] MEDS ORDERED: diphenhydrAMINE Capsule 25 MG CAP PO PRN (06:29)
[2023-01-21] MEDS ORDERED: diphenhydrAMINE 50 MG/ML VIAL IV PRN (06:29)
[2023-01-21] MEDS: FERROUS SULFATE 325 MG TAB PO SCH (08:24)
[2023-01-21] MEDS: SIMETHICONE 80 MG CHEW PO SCH ×4 (08:24→21:44)
[2023-01-21] MEDS: DOCUSATE SODIUM 100 MG CAP PO SCH ×2 (08:25→21:44)
[2023-01-21] MEDS: PRENATAL VITAMIN 1 TAB PO SCH (08:25)
[2023-01-21] MEDS: oxyCODONE/ACETAMINOPHEN 5mg/325mg TAB PO PRN ×4 (08:26→21:44)
[2023-01-21] MEDS: IBUPROFEN 600 MG TAB PO PRN ×4 (08:26→21:44)
[2023-01-21] MEDS: ENOXAPARIN INJ 40 MG/0.4 ML SYR SQ SCH (08:54)
[2023-01-21] MEDS ORDERED: bisacodyL 5 MG TABEC PO SCH (20:00)
[2023-01-22] MEDS: oxyCODONE/ACETAMINOPHEN 5mg/325mg TAB PO PRN ×6 (02:08→23:48)
[2023-01-22] MEDS: IBUPROFEN 600 MG TAB PO PRN ×4 (06:12→23:48)
--- NOTE | 2023-01-22 06:23 | Obstetrical Progress Note ---
Date of Service <Glenna Herrera DO - Last Filed: 01/22/23 06:23> January 22, 2023 Assessment & Plan <Glenna Herrera DO - Last Filed: 01/22/23 06:23> (1) care following delivery: Pt continuing to do well today. Pain well controlled with prn analgesics. Routine care; OOB, ambulation, continue regular diet. Plan for discharge 48-72 hours after procedure, likely tomorrow. After discharge will have 6 week follow-up with Dr. Moralez. <Virginie Arguelles MD, FACOG - Last Filed: 01/22/23 08:08> (1) care following delivery: Subjective <Glenna Herrera DO - Last Filed: 01/22/23 06:23> t is a 42 y/o female who is POD#2 following repeat delivery at 39 0/7 weeks. was complicated by polyhydramnios and GDM. Pt has a history of Factor V Leiden. Pt states that she is doing well today. She states that she is just tired because her baby had difficulty with latching last night. Otherwise, the goodman has been removed and she is voiding on her own, as well as ambulating and passing gas. She is tolerating regular diet without nausea or vomiting and her pain has been mild and improved with prn percocet. She is continuing to breastfeed. No questions or concerns at this time. She states that she would like to stay at least until tomorrow to work on latching and continuing to recover. Constitutional: no fever, no chills or no sweats Respiratory: no dyspnea Cardiovascular: no chest pain or no palpitations Breast: no breast pain Genitourinary (female): no dysuria Neurologic: no headache(s) no changes in vision, no headaches Physical Exam <Glenna Herrera DO - Last Filed: 01/22/23 06:23> General: Alert, oriented. No acute distress. Cardiac: Regular rate and rhythm, no murmurs, rubs, or gallops. Respiratory: Clear to auscultation bilaterally, no wheezes/rales/rhonchi. No increased work of breathing. Symmetrical chest rise. No respiratory distress. Abdomen: Soft, nontender, nondistended. Bowel sounds present. Uterus: Uterine fundus firm, palpable below the umbilicus. MARIETTA dressing in place. Lower extremities: No lower extremity edema or swelling. No deep calf pain. Results & Data <Glenna Herrera DO - Last Filed: 01/22/23 06:23> Vital Signs (Past 12 Hours) Vital Signs Temp Pulse Resp BP Pulse Ox O2 Del Method 01/22/23 00:31 36.5 C 86 18 94/57 L 96 Room Air 01/21/23 19:53 36.6 C 88 20 108/69 98 Room Air <Virginie Arguelles MD, FACOG - Last Filed: 01/22/23 08:08> Co-Signing Physician Notes Resident Physician Supervision Note: I was present with Dr. Herrera during the history and exam. I discussed the case with the resident and agree with the findings and plan as documented in the note. Any exceptions or clarifications are listed here: [None] Documented By: Virginie Arguelles MD, FACOG Resident Activity Tracking <Glenna Herrera DO - Last Filed: 01/22/23 06:23> Resident Involvement: Resident Care Provided Care Provided: OB Delivery
[2023-01-22 06:28] LABS: Hemoglobin 9.2 g/dl (12.0-16.0)
[2023-01-22] MEDS: PRENATAL VITAMIN 1 TAB PO SCH (08:45)
[2023-01-22] MEDS: DOCUSATE SODIUM 100 MG CAP PO SCH ×2 (08:45→21:16)
[2023-01-22] MEDS: SIMETHICONE 80 MG CHEW PO SCH ×4 (08:45→21:16)
[2023-01-22] MEDS: FERROUS SULFATE 325 MG TAB PO SCH (08:45)
[2023-01-22] MEDS: ENOXAPARIN INJ 40 MG/0.4 ML SYR SQ SCH (08:46)
[2023-01-22] MEDS ORDERED: bisacodyL 10 MG SUPP PR PRN (13:09)
[2023-01-22] MEDS: LACTATED RINGER'S 1,000 ML IV SCH (19:15)
[2023-01-23] MEDS: oxyCODONE/ACETAMINOPHEN 5mg/325mg TAB PO PRN ×3 (03:55→11:37)
[2023-01-23] MEDS: IBUPROFEN 600 MG TAB PO PRN ×3 (03:56→11:36)
--- NOTE | 2023-01-23 06:00 | Obstetrical Progress Note ---
Date of Service <Glenna Herrera DO - Last Filed: 01/23/23 06:00> January 23, 2023 Assessment & Plan <Glenna Herrera DO - Last Filed: 01/23/23 06:00> (1) care following delivery: Pt continues to do well. Pain well controlled with prn analgesics. Routine care; OOB, ambulation, continue regular diet. Plan for discharge today. After discharge will have 6 week follow-up with Dr. Moralez. <Nettie Ashley MD - Last Filed: 01/23/23 06:16> (1) care following delivery: Subjective <Glenna Herrera DO - Last Filed: 01/23/23 06:00> Pt is a 42 y/o female who is POD#3 following repeat delivery at 39 0/7 weeks. was complicated by polyhydramnios and GDM. Pt has a history of Factor V Leiden. Pt states that she is doing well today. She is continuing to ambulate, void, pass gas, and have bowel movements without difficulty. She is eating regular diet without nausea or vomiting. She continues to breast feed and states that latching has been going better. Her pain is well controlled with prn analgesics. She states her bleeding has been minimal. She would like to go home today. Constitutional: no fever, no chills or no sweats Respiratory: no dyspnea Cardiovascular: no chest pain or no palpitations Breast: no breast pain Genitourinary (female): no dysuria Neurologic: no headache(s) no changes in vision, no headaches Physical Exam <Glenna Herrera DO - Last Filed: 01/23/23 06:00> General: Alert, oriented. No acute distress. Cardiac: Regular rate and rhythm, no murmurs, rubs, or gallops. Respiratory: Clear to auscultation bilaterally, no wheezes/rales/rhonchi. No increased work of breathing. Symmetrical chest rise. No respiratory distress. Abdomen: Soft, nontender, nondistended. Bowel sounds present. Uterus: Uterine fundus firm, palpable below the umbilicus. [place] dressing in place, good seal maintained. Lower extremities: No lower extremity edema or swelling. No deep calf pain. Results & Data <Glenna Herrera DO - Last Filed: 01/23/23 06:00> Vital Signs (Past 12 Hours) Vital Signs Temp Pulse Resp BP Pulse Ox O2 Del Method 01/23/23 00:10 36.6 C 83 18 110/67 98 Room Air 01/22/23 21:20 36.4 C L 86 18 118/72 96 Room Air <Nettie Ashley MD - Last Filed: 01/23/23 06:16> Co-Signing Physician Notes Resident Physician Supervision Note: I interviewed and examined the patient. Discussed with Dr. Herrera and agree with findings and plan as documented in the note. Any exceptions or c larifications are listed here: POD3 s/p rLTCS, doing well. VSS exam benign and wnl. [place] dressing in place. Stable for d/c home today, has [place] dressing removal early next week. Importance of lovenox reviewed given risk factors, pt verbalized understanding Documented By: Nettie Ashley MD Resident Activity Tracking <Glenna Herrera DO - Last Filed: 01/23/23 06:00> Resident Involvement: Resident Care Provided Care Provided: OB Delivery
[2023-01-23] MEDS: DOCUSATE SODIUM 100 MG CAP PO SCH (08:06)
[2023-01-23] MEDS: SIMETHICONE 80 MG CHEW PO SCH (08:06)
[2023-01-23] MEDS: FERROUS SULFATE 325 MG TAB PO SCH (08:07)
[2023-01-23] MEDS: PRENATAL VITAMIN 1 TAB PO SCH (08:08)
[2023-01-23] MEDS: ENOXAPARIN INJ 40 MG/0.4 ML SYR SQ SCH (08:59)
[2023-01-23 09:30] VITALS: BP 97/65; PULSE 88; TEMP 98.4; O2SAT 95
== END 2023-01-23 12:30 | disposition home or self-care (01) | DRG 787 ==
LOC: 4S1 07:13 → EDSTATUS 07:30 → 4E1 15:30